=== PATIENT | female | born 1970 | race American Indian/Alaskan Native ===

== ENCOUNTER 2017-04-12 11:12 | Emergency (ER) | payer OTHER ==
[2017-04-12 11:13] VITALS: BMI 39.4
[2017-04-12 11:34] VITALS: TEMP 98.6
--- NOTE | 2017-04-12 12:06 | ED PDOC ---
Arrival/HPI - General Chief Complaint: Seizure Time Seen by Provider: 04/12/17 11:42 Historian: Patient, Family - History of Present Illness Narrative History of Present Illness (Text): 04/12/17 11:55 Britt Mccall is a 46 year old female who presents to the Emergency department complaining of two episodes of seizures that began two nights ago. Patient reports that two nights ago, she was getting ready to go to bed and then had an episode of a "seizure." Patient's mother states patient's right arm began to shake, followed by her left arm. Mother was able to talk to patient while this episode occurred, but mother reports that patient had slower than usual response. The episode resolved after a minute and then patient immediately became AAOx3 with no confusion. Patient had similar episode last night. Mother reports that these episodes are always when patient is lying in bed. Patient notes there has been a recent change in her bipolar medications. Patient denies any current complaints. Patient denies any chest pain, shortness of breath, headache, nausea, vomiting, diarrhea, fever, chills, cough , visual changes, tongue biting, bowel/bladder incontinence or head injury. PMD: Dr. Mendes Time/Duration: < week (2 nights ago) Symptom Onset: Sudden Symptom Course: Unchanged Activities at Onset: Rest Modifying Factors (Text): None Context: Home Associated Symptoms (Text): None Past Medical History - Provider Review Nursing Documentation Reviewed: Yes - Past History Past History: Non-Contributing - Infectious Disease Hx of Infectious Diseases: None - Tetanus Immunization Tetanus Immunization: Unknown - Reproductive Menopause: No - Cardiac Hx Hypertension: Yes - Pulmonary Hx Respiratory Disorders: Yes Hx Asthma: Yes - Neurological Hx Neurological Disorder: No Hx Seizures: Yes - HEENT Hx HEENT Disorder: No - Renal Hx Renal Disorder: No - Endocrine/Metabolic Hx Endocrine Disorders: Yes Hx Diabetes Mellitus Type 2: Yes - Hematological/Oncological Hx Blood Disorders: No - Integumentary Hx Dermatological Disorder: Yes (acne) - Musculoskeletal/Rheumatological Hx Musculoskeletal Disorders: Yes Hx Fractures: Yes - Gastrointestinal Hx Gastrointestinal Disorders: No - Genitourinary/Gynecological Hx Genitourinary Disorders: No - Psychiatric Hx Depression: Yes Hx Substance Use: No - Surgical History Hx Orthopedic Surgery: Yes (R knee) Other/Comment: jaw fixation - Anesthesia Hx Anesthesia: Yes Hx Anesthesia Reactions: No Hx Malignant Hyperthermia: No - Suicidal Assessment Feels Threatened In Home Enviroment: No Family/Social History - Physician Review Nursing Documentation Reviewed: Yes Family/Social History: Unknown Family HX Smoking Status: Never Smoked Hx Alcohol Use: No Hx Substance Use: No Hx Substance Use Treatment: No Allergies/Home Meds Allergies/Adverse Reactions: Allergies codeine Allergy (Severe, Verified 04/12/17 11:28) ANAPHYLAXIS mushroom Allergy (Verified 04/12/17 11:28) SHORTNESS OF BREATH Home Medications: Home Meds Medication Instructions Recorded Confirmed Lisinopril 10 mg PO DAILY 04/15/12 04/12/17 Metformin HCl [Metformin] 1,000 mg PO BID 04/15/12 04/12/17 Bromocriptine [Parlodel] 2.5 mg PO HS 04/12/17 04/12/17 Calcitriol [Rocaltrol] 0.25 mcg PO BID 04/12/17 04/12/17 Escitalopram [Lexapro] 20 mg PO DAILY 04/12/17 04/12/17 Levothyroxine [Levoxyl] 0.125 mg PO DAILY 04/12/17 04/12/17 Lurasidone HCl [Latuda] 40 mg PO HS 04/12/17 04/12/17 Montelukast Sodium [Singulair] 10 mg PO DAILY 04/12/17 04/12/17 Naproxen [Naprosyn] 500 mg PO BID 04/12/17 04/12/17 Review of Systems - Review of Systems Constitutional: absent: Fatigue, Weight Change, Fevers Eyes: absent: Vision Changes, Photophobia ENT: Other (no tongue biting). absent: Rhinorrhea Respiratory: absent: SOB, Cough, Sputum, Wheezing Cardiovascular: absent: Chest Pain, Palpitations, Edema, Calf Pain, BANKS, Orthopnea, Syncope Gastrointestinal: absent: Abdominal Pain, Constipation, Diarrhea, Nausea, Vomiting Genitourinary Female: absent: Dysuria Musculoskeletal: absent: Back Pain Skin: absent: Rash Neurological: Other (2 episodes of tremor). absent: Headache Endocrine: absent: Diaphoresis Psychiatric: absent: Anxiety Physical Exam Vital Signs Temp Pulse Resp BP Pulse Ox 04/12/17 13:13 83 20 122/81 98 04/12/17 11:31 98.6 F 84 18 130/70 97 04/12/17 11:22 99.3 F 91 H 18 116/78 97 Temperature: Afebrile Blood Pressure: Normal Pulse: Regular Respiratory Rate: Normal Appearance: Positive for: Well-Appearing, Non-Toxic, Comfortable Pain Distress: None Mental Status: Positive for: Alert and Oriented X 3 - Systems Exam Head: Present: Atraumatic, Normocephalic Pupils: Present: PERRL Extroacular Muscles: Present: EOMI Conjunctiva: Present: Normal Mouth: Present: Moist Mucous Membranes Pharnyx: No: ERYTHEMA, EXUDATE Neck: Present: Normal Range of Motion. No: MIDLINE TENDERNESS Respiratory/Chest: Present: Clear to Auscultation, Good Air Exchange. No: Respiratory Distress, Accessory Muscle Use Cardiovascular: Present: Regular Rate and Rhythm, Normal S1, S2. No: Murmurs Abdomen: Present: Normal Bowel Sounds. No: Tenderness, Distention, Peritoneal Signs Back: Present: Normal Inspection. No: CVA Tenderness Upper Extremity: Present: Normal Inspection. No: Cyanosis, Edema Lower Extremity: Present: Normal Inspection. No: Edema Neurological: Present: GCS=15, CN II-XII Intact, Speech Normal, Normal Sensory Function, Normal Cerebellar Funct, Gait Normal Skin: Present: Warm, Dry, Normal Color. No: Rashes Psychiatric: Present: Alert, Oriented x 3, Normal Insight, Normal Concentration Medical Decision Making ED Course and Treatment: 04/12/17 11:55 Impression: 46 year old female with two episodes of tremors. Presentation does not seem consistent with seizure as both arms are shaking while patient is conversant and has no tongue biting, urinary or bowel incontinence or post-ictal period. Could be tremor vs night terror but needs further neuro eval Plan: -- CT Head without contrast -- Chest X-ray -- Labs -- Urinalysis -- Reassess and disposition Progress Notes: 04/12/17 13:[address] head negative. Spoke to hospitalist who reports that even if patient did have seizure, she can follow-up as outpatient with neurology and does not need inpatient admission for neuro workup. Patient feels comfortably following up as outpatient. Instructed on no driving. - Lab Interpretations Lab Results: 04/12/17 12:30 04/12/17 12:30 Lab Results 04/12/17 12:30: Free T4 0.94, TSH 3rd Generation 3.77 04/12/17 12:30: Sodium 139, Potassium 4.1, Chloride 103, Carbon Dioxide 28, Anion Gap 12, BUN 14, Creatinine 0.9, Est GFR ( Amer) > 60, Est GFR (Non- Af Amer) > 60, Random Glucose 132 H, Calcium 9.6, Phosphorus 3.5, Magnesium 1.9 , Total Bilirubin 0.3, AST 51 H, ALT 46, Alkaline Phosphatase 57, Total Protein 6.8, Albumin 3.9, Globulin 2.9, Albumin/Globulin Ratio 1.3 04/12/17 12:30: WBC 5.2, RBC 4.47, Hgb 10.3 L, Hct 32.2 L, MCV 72.0 L, MCH 23.0 L, MCHC 32.0, RDW 18.1 H, Plt Count 353, MPV 8.9, Gran % 67.9, Lymph % (Auto) 25.2, [place] % (Auto) 5.0, Eos % (Auto) 1.3 L, Baso % (Auto) 0.6, Gran # 3.56, Lymph # 1.3, [place] # 0.3, Eos # 0.1, Baso # 0.03 04/12/17 12:25: Urine Color Yellow, Urine Appearance Clear, Urine pH 5.5, Ur Specific Bryan 1.020, Urine Protein Negative, Urine Glucose (UA) Negative, Urine Ketones Negative, Urine Blood Moderate H, Urine Nitrate Negative, Urine Bilirubin Negative, Urine Urobilinogen 0.2, Ur Leukocyte Esterase Negative, Urine RBC 0 - 2, Urine WBC 0 - 2, Ur Epithelial Cells 1 - 3, Urine Bacteria Neg 04/12/17 11:38: POC Glucose (mg/dL) 140 H I have reviewed the lab results: Yes - RAD Interpretation Radiology Orders: 04/12/17 11:59 HEAD W/O CONTRAST [CT] Stat CHEST PORTABLE [RAD] Stat - Scribe Statement The provider has reviewed the documentation as recorded by the Scribe 04/12/2017 Vilma Singh Provider Scribe Attestation: All medical record entries made by the Scribe were at my direction and personally dictated by me. I have reviewed the chart and agree that the record accurately reflects my personal performance of the history, physical exam, medical decision making, and the department course for this patient. I have also personally directed, reviewed, and agree with the discharge instructions and disposition. Disposition/Present on Arrival - Present on Arrival Any Indicators Present on Arrival: No History of DVT/PE: No History of Uncontrolled Diabetes: No Urinary Catheter: No History of Decub. Ulcer: No History Surgical Site Infection Following: None - Disposition Have Diagnosis and Disposition been Completed?: Yes Diagnosis: Tremor Disposition: HOME/ ROUTINE Disposition Time: 13:21 Patient Plan: Discharge Patient Problems: Current Active Problems Problem Status Onset Tremor Acute Condition: GOOD Discharge Instructions (ExitCare): Tremors (ED) Additional Instructions: Follow up with PMD within 2 days. Follow-up with neurology for further evaluation of tremors. Take medication as prescribed. NO DRIVING UNTIL CLEARED BY NEUROLOGY Referrals: Joshua Valera MD [Staff Provider] - Follow up with primary Forms: [employer] (Lebanese)
[2017-04-12 12:41] LABS: PH,URINE 5.5 (4.7-8.0); URINE BILIRUBIN NEGATIVE (NEGATIVE); URINE BLOOD MODERATE (NEGATIVE); URINE GLUCOSE (UA) NEGATIVE (NEGATIVE); URINE LEUKOCYTE ESTERASE NEGATIVE Leu/uL (NEGATIVE); URINE NITRATE NEGATIVE (NEGATIVE); URINE PROTEIN NEGATIVE mg/dL (<30 mg/dL); URINE UROBILINOGEN 0.2 E.U./dL (<1 E.U./dL)
[2017-04-12 12:42] LABS: URINE APPEARANCE CLEAR (CLEAR); URINE COLOR YELLOW (YELLOW)
[2017-04-12 12:46] LABS: URINE BACTERIA NEG (NEG); URINE RBC 0 - 2 /hpf (0-2); URINE WBC 0 - 2 /hpf (0-6)
[2017-04-12 13:00] LABS: BASO # 0.03 K/mm3 (0.0-2.0); BASO % 0.6 % (0.0-3.0); EOS # 0.1 (0.0-0.7); EOS % 1.3 % (1.5-5.0); GRAN # 3.56 (1.4-6.5); GRAN % 67.9 % (50.0-68.0); HEMOGLOBIN 10.3 g/dL (12.0-16.0); LYMPH # 1.3 (1.2-3.4); LYMPH % 25.2 % (22.0-35.0); MEAN PLATELET VOLUME 8.9 fl (7.0-11.0); MONO # 0.3 (0.1-0.6); PLATELET COUNT 353 10^3/uL (120.0-450.0); RBC 4.47 10^6/uL (3.5-6.1); RED CELL DISTRIBUTION WIDTH 18.1 % (11.5-14.5); WHITE BLOOD COUNT 5.2 10^3/ul (4.5-11.0)
[2017-04-12 13:08] LABS: ALB/GLOB RATIO 1.3 (1.1-1.8); ALBUMIN 3.9 g/dL (3.0-4.8); ALT/SGPT 46 U/L (7-56); AST/SGOT 51 U/L (15-39); BLOOD UREA NITROGEN 14 mg/dL (7-21); CALCIUM 9.6 mg/dL (8.4-10.5); GFR AFRICAN-AMERICAN > 60; GFR NON-AFRICAN AMERICAN > 60; MAGNESIUM 1.9 mg/dL (1.7-2.2)
--- NOTE | 2017-04-12 13:10 | CT ---
PROCEDURE: CT HEAD WITHOUT CONTRAST. HISTORY: seizure COMPARISON: None available. TECHNIQUE: Axial computed tomography images were obtained through the head/brain without intravenous contrast. Radiation dose: Total exam DLP = 1379 mGy-cm. This CT exam was performed using one or more of the following dose reduction techniques: Automated exposure control, adjustment of the mA and/or kV according to patient size, and/or use of iterative reconstruction technique. FINDINGS: HEMORRHAGE: No intracranial hemorrhage. BRAIN: No mass effect or edema. No atrophy or chronic microvascular ischemic changes. VENTRICLES: Unremarkable. No hydrocephalus. CALVARIUM: Unremarkable. PARANASAL SINUSES: Unremarkable as visualized. No significant inflammatory changes. MASTOID AIR CELLS: Unremarkable as visualized. No inflammatory changes. OTHER FINDINGS: None. IMPRESSION: No acute findings
[2017-04-12 13:20] VITALS: O2SAT 98
[2017-04-12 13:25] LABS: FREE T4 0.94 ng/dL (0.78-2.19)
--- NOTE | 2017-04-12 13:44 | RAD ---
HISTORY: Seizure. Technique: Single view portable semi erect @ 12:55. COMPARISON: 06/30/2013. FINDINGS: LUNGS: No active pulmonary disease. PLEURA: No significant pleural effusion identified, no pneumothorax apparent. CARDIOVASCULAR: Normal. OSSEOUS STRUCTURES: No significant abnormalities. VISUALIZED UPPER ABDOMEN: Normal. OTHER FINDINGS: None. IMPRESSION: No active disease. No significant interval change compared to the prior examination(s). No preliminary report provided by emergency department personnel.
[2017-04-12 14:31] VITALS: BP 122/83; PULSE 76; RESP 16
--- NOTE | 2017-04-12 15:55 | CARD ---
APPROVED REPORT EKG Measurement Heart [id number] <Conclusion> Normal sinus rhythm Nonspecific T wave abnormality Abnormal ECG
== END 2017-04-12 14:31 | disposition home or self-care (01) ==
LOC: ED 11:12
DX: R25.1 Tremor, unspecified (principal); I10 Essential (primary) hypertension; E11.9 Type 2 diabetes mellitus without complications

== ENCOUNTER 2017-04-12 15:01 | Emergency (ER) | payer OTHER ==
[2017-04-12 15:01] VITALS: BMI 39.4
--- NOTE | 2017-04-12 15:24 | ED PDOC ---
Arrival/HPI - General Time Seen by Provider: 04/12/17 15:22 - History of Present Illness Narrative History of Present Illness (Text): 04/12/17 15:23 Patient was seen earlier by me for tremor. See that documentation for further information. Mother now returns with patient and reports that that she did not mention that the patient has been more agitated recently, is talking to herself and becoming aggressive at home. Mother is requesting psych eval for her bipolar disorder. Patient denies HI/SI, AH or VH and is calm and cooperative in ED Past Medical History - Past History Past History: Non-Contributing - Infectious Disease Hx of Infectious Diseases: None - Tetanus Immunization Tetanus Immunization: Unknown - Cardiac Hx Hypertension: Yes - Pulmonary Hx Respiratory Disorders: Yes Hx Asthma: Yes - Neurological Hx Neurological Disorder: No Hx Seizures: Yes - HEENT Hx HEENT Disorder: No - Renal Hx Renal Disorder: No - Endocrine/Metabolic Hx Endocrine Disorders: Yes Hx Diabetes Mellitus Type 2: Yes - Hematological/Oncological Hx Blood Disorders: No - Integumentary Hx Dermatological Disorder: Yes (acne) - Musculoskeletal/Rheumatological Hx Musculoskeletal Disorders: Yes Hx Fractures: Yes - Gastrointestinal Hx Gastrointestinal Disorders: No - Genitourinary/Gynecological Hx Genitourinary Disorders: No - Psychiatric Hx Depression: Yes Hx Substance Use: No - Surgical History Hx Orthopedic Surgery: Yes (R knee) Other/Comment: jaw fixation - Anesthesia Hx Anesthesia: Yes Hx Anesthesia Reactions: No Hx Malignant Hyperthermia: No - Suicidal Assessment Feels Threatened In Home Enviroment: No Family/Social History Family/Social History: No Known Family HX Smoking Status: Never Smoked Hx Alcohol Use: No Hx Substance Use: No Hx Substance Use Treatment: No Allergies/Home Meds Allergies/Adverse Reactions: Allergies codeine Allergy (Severe, Verified 04/12/17 11:28) ANAPHYLAXIS mushroom Allergy (Verified 04/12/17 11:28) SHORTNESS OF BREATH Home Medications: Home Meds Medication Instructions Recorded Confirmed Lisinopril 10 mg PO DAILY 04/15/12 04/12/17 Metformin HCl [Metformin] 1,000 mg PO BID 04/15/12 04/12/17 Bromocriptine [Parlodel] 2.5 mg PO HS 04/12/17 04/12/17 Calcitriol [Rocaltrol] 0.25 mcg PO BID 04/12/17 04/12/17 Escitalopram [Lexapro] 20 mg PO DAILY 04/12/17 04/12/17 Levothyroxine [Levoxyl] 0.125 mg PO DAILY 04/12/17 04/12/17 Lurasidone HCl [Latuda] 40 mg PO HS 04/12/17 04/12/17 Montelukast Sodium [Singulair] 10 mg PO DAILY 04/12/17 04/12/17 Naproxen [Naprosyn] 500 mg PO BID 04/12/17 04/12/17 Review of Systems - Review of Systems Constitutional: absent: Fatigue Eyes: absent: Vision Changes Respiratory: absent: SOB, Cough, Sputum, Wheezing Cardiovascular: absent: Chest Pain Gastrointestinal: absent: Abdominal Pain, Constipation, Diarrhea, Nausea, Vomiting Genitourinary Female: absent: Dysuria Musculoskeletal: absent: Arthralgias Skin: absent: Rash Neurological: absent: Headache Psychiatric: absent: Anxiety, Depression, Suicidal Ideation, Other (+auditory hallucinations) Physical Exam Vital Signs Temp Pulse Resp BP Pulse Ox 04/12/17 15:30 98.8 F 71 18 141/91 H 98 Temperature: Afebrile Blood Pressure: Normal Pulse: Regular Respiratory Rate: Normal Appearance: Positive for: Well-Appearing, Non-Toxic, Comfortable Pain Distress: None - Systems Exam Head: Present: Atraumatic, Normocephalic Pupils: Present: PERRL Extroacular Muscles: Present: EOMI Conjunctiva: Present: Normal Neck: Present: Normal Range of Motion Respiratory/Chest: Present: Clear to Auscultation Cardiovascular: Present: Regular Rate and Rhythm, Normal S1, S2. No: Murmurs Abdomen: No: Tenderness Upper Extremity: Present: Normal Inspection Lower Extremity: Present: Normal Inspection Neurological: Present: GCS=15, CN II-XII Intact, Speech Normal, Gait Normal Psychiatric: Present: Alert, Oriented x 3. No: Suicidal Ideation, Homicidal Ideation Medical Decision Making ED Course and Treatment: 04/12/17 15:[address] Mendes who is aware that patient is in ED. No medical indication for admission. [facility], crisis, evaluated patient and she does not meet criteria for inpatient psych. They gave patient referral for [facility]. Mother is in agreement with this plan and patient was discharged. Disposition/Present on Arrival - Present on Arrival Any Indicators Present on Arrival: No History of DVT/PE: No History of Uncontrolled Diabetes: No Urinary Catheter: No History Surgical Site Infection Following: None - Disposition Have Diagnosis and Disposition been Completed?: Yes Diagnosis: Bipolar 1 disorder Disposition: HOME/ ROUTINE Disposition Time: 16:27 Patient Problems: Current Active Problems Problem Status Onset Bipolar 1 disorder Acute Condition: GOOD Discharge Instructions (ExitCare): Bipolar Disorder (ED) Additional Instructions: Follow up with [facility]. Return to ED if condition worsens. Take medication as prescribed. Referrals: Anel Mendes MD [Primary Care Provider] - Follow up with primary
[2017-04-12 15:31] VITALS: RESP 18; TEMP 98.8; O2SAT 98
[2017-04-12 20:28] VITALS: BP 133/80; PULSE 76
== END 2017-04-12 16:50 | disposition home or self-care (01) ==
LOC: ED 15:01
DX: F31.9 Bipolar disorder, unspecified (principal)

== ENCOUNTER 2017-04-16 11:37 | Inpatient (IN) | payer MEDICAID, OTHER ==
[2017-04-16 11:49] VITALS: BMI 36.6
[2017-04-16 12:37] LABS: BASO # 0.03 K/mm3 (0.0-2.0); BASO % 0.6 % (0.0-3.0); EOS # 0.1 (0.0-0.7); GRAN # 3.24 (1.4-6.5); GRAN % 67.5 % (50.0-68.0); HEMATOCRIT 33.7 % (36.0-48.0); LYMPH # 1.2 (1.2-3.4); LYMPH % 24.5 % (22.0-35.0); MEAN CELL VOLUME 71.5 fl (80.0-105.0); MEAN CORPUSCULAR HEMOGLOBIN 23.4 pg (25.0-35.0); MEAN CORPUSCULAR HGB CONC 32.6 g/dl (31.0-37.0); MEAN PLATELET VOLUME 8.7 fl (7.0-11.0); MONO # 0.3 (0.1-0.6); MONO % 6.4 % (1.0-6.0); RED CELL DISTRIBUTION WIDTH 18.2 % (11.5-14.5); WHITE BLOOD COUNT 4.8 10^3/ul (4.5-11.0)
--- NOTE | 2017-04-16 12:40 | ED PDOC ---
Arrival/HPI - General Chief Complaint: Psychiatric Evaluation Time Seen by Provider: 04/16/17 12:00 Historian: Patient - History of Present Illness Narrative History of Present Illness (Text): 04/16/17 12:03 A 46 year old female, whose past medical history includes bipolar, depression, thyroid cancer s/p partial removal of lymph node, presents to the emergency department with mother who reports worsening symptoms since medication change 6 days ago. During the night patient has been talking to herself, more emotional and has been hallucinating and having tremors. Patient denies having hallucinations or talking to herself, but reports she has been having "seizures ", which involve twitching, and is aware of seizures happening. Patient goes to [facility] and reports her doctor changed her medications a week ago from Celexa and Zyprexa, because of weight gain, to Latuda and Lexapro. Notes low grade fever and body soreness for the past couple of days but denies any suicidal ideation, cough, sore throat, shortness of breath, vomiting or any other complaints at this time. PMD: Dr. Mendes Time/Duration: Other (3 days) Symptom Onset: Sudden Symptom Course: Unchanged Activities at Onset: Rest Context: Home Past Medical History - Provider Review Nursing Documentation Reviewed: Yes - Past History Past History: Non-Contributing - Infectious Disease Hx of Infectious Diseases: None - Tetanus Immunization Tetanus Immunization: Unknown - Cardiac Hx Hypertension: Yes - Pulmonary Hx Respiratory Disorders: Yes Hx Asthma: Yes - Neurological Hx Neurological Disorder: No Hx Seizures: Yes - HEENT Hx HEENT Disorder: No - Renal Hx Renal Disorder: No - Endocrine/Metabolic Hx Endocrine Disorders: Yes Hx Diabetes Mellitus Type 2: Yes - Hematological/Oncological Hx Blood Disorders: No - Integumentary Hx Dermatological Disorder: Yes (acne) - Musculoskeletal/Rheumatological Hx Musculoskeletal Disorders: Yes Hx Fractures: Yes - Gastrointestinal Hx Gastrointestinal Disorders: No - Genitourinary/Gynecological Hx Genitourinary Disorders: No - Psychiatric Hx Bipolar Disorder: Yes Hx Depression: Yes Hx Psychosis: Yes Hx Substance Use: No - Surgical History Hx Orthopedic Surgery: Yes (R knee) Other/Comment: jaw fixation - Anesthesia Hx Anesthesia: Yes Hx Anesthesia Reactions: No Hx Malignant Hyperthermia: No - Suicidal Assessment Feels Threatened In Home Enviroment: No Family/Social History - Physician Review Nursing Documentation Reviewed: Yes Family/Social History: No Known Family HX Smoking Status: Never Smoked Hx Alcohol Use: No Hx Substance Use: No Hx Substance Use Treatment: No Allergies/Home Meds Allergies/Adverse Reactions: Allergies codeine Allergy (Severe, Verified 04/16/17 21:45) ANAPHYLAXIS chlorpromazine [From Thorazine] Allergy (Verified 04/16/17 21:45) ANAPHYLAXIS fluphenazine [From Prolixin] Allergy (Verified 04/16/17 21:45) RASH haloperidol [From Haldol] Allergy (Verified 04/16/17 21:45) SHORTNESS OF BREATH mushroom Allergy (Verified 04/16/17 21:45) SHORTNESS OF BREATH ziprasidone [From Geodon] Allergy (Verified 04/16/17 21:45) REDNESS tardive dyskinesia Home Medications: Home Meds Medication Instructions Recorded Confirmed Lisinopril 10 mg PO DAILY 04/15/12 04/16/17 Metformin HCl [Metformin] 1,000 mg PO BID 04/15/12 04/16/17 Bromocriptine [Parlodel] 2.5 mg PO HS 04/12/17 04/16/17 Calcitriol [Rocaltrol] 0.25 mcg PO BID 04/12/17 04/16/17 Escitalopram [Lexapro] 20 mg PO DAILY 04/12/17 04/16/17 Levothyroxine [Levoxyl] 0.125 mg PO DAILY 04/12/17 04/16/17 Lurasidone HCl [Latuda] 40 mg PO HS 04/12/17 04/16/17 Montelukast Sodium [Singulair] 10 mg PO DAILY 04/12/17 04/16/17 Naproxen [Naprosyn] 500 mg PO BID 04/12/17 04/16/17 Albuterol HFA [Ventolin HFA 90 1 puff IH QID PRN 04/16/17 04/16/17 mcg/actuation (8 g)] Calcium Carbonate/Vitamin D3 1 tab PO DAILY 04/16/17 04/16/17 [Caltrate 600 Plus D3 Tablet] Loratadine [Claritin] 1 tab PO DAILY 04/16/17 04/16/17 Review of Systems - Physician Review All systems were reviewed & negative as marked: Yes - Review of Systems Constitutional: Fevers (low grade), Other (body soreness) ENT: absent: Sore Throat Respiratory: absent: SOB, Cough Gastrointestinal: absent: Vomiting Neurological: Seizure (twitching) Psychiatric: Other (hallucinations, emotional). absent: Suicidal Ideation Physical Exam Vital Signs Reviewed: Yes Vital Signs Temp Pulse Resp BP Pulse Ox 04/16/17 15:05 78 18 121/71 98 04/16/17 14:10 81 18 122/75 98 04/16/17 13:06 98.7 F 04/16/17 12:55 89 18 124/79 97 04/16/17 11:56 99.9 F H 98 H 18 126/80 96 Temperature: Afebrile Blood Pressure: Normal Pulse: Regular Respiratory Rate: Normal Appearance: Positive for: Well-Appearing, Non-Toxic, Comfortable Pain Distress: None Mental Status: Positive for: Alert and Oriented X 3 - Systems Exam Head: Present: Atraumatic, Normocephalic Pupils: Present: PERRL Extroacular Muscles: Present: EOMI Conjunctiva: Present: Normal Mouth: Present: Moist Mucous Membranes Neck: Present: Normal Range of Motion Respiratory/Chest: Present: Clear to Auscultation, Good Air Exchange. No: Respiratory Distress, Accessory Muscle Use Cardiovascular: Present: Regular Rate and Rhythm, Normal S1, S2. No: Murmurs Abdomen: Present: Normal Bowel Sounds. No: Tenderness, Distention, Peritoneal Signs Back: Present: Normal Inspection Upper Extremity: Present: Normal Inspection. No: Cyanosis, Edema Lower Extremity: Present: Normal Inspection. No: Edema Neurological: Present: GCS=15, CN II-XII Intact, Speech Normal Skin: Present: Warm, Dry, Normal Color. No: Rashes Psychiatric: Present: Alert, Oriented x 3, Normal Insight, Normal Concentration Medical Decision Making ED Course and Treatment: 04/16/17 12:40 EKG: Ordered, reviewed, and independently interpreted the EKG. Rate : 89 BPM Rhythm : NSR Interpretation : Nonspecific T wave changes, normal axis, normal intervals 04/16/17 13:38 chest xray Creator : Jae Engel MD IMPRESSION: No active disease. - Lab Interpretations Lab Results: 04/16/17 12:30 04/16/17 12:30 Lab Results 04/16/17 13:00: Urine Opiates Screen Negative, Urine Methadone Screen Negative, Ur Barbiturates Screen Negative, Ur Phencyclidine Scrn Negative, Ur Amphetamines Screen Negative, U Benzodiazepines Scrn Negative, U Oth Cocaine Metabols Negative, U Cannabinoids Screen Negative 04/16/17 13:00: Urine Color Yellow, Urine Appearance Clear, Urine pH 6.0, Ur Specific [place] 1.010, Urine Protein Negative, Urine Glucose (UA) Negative, Urine Ketones Negative, Urine Blood Negative, Urine Nitrate Negative, Urine Bilirubin Negative, Urine Urobilinogen 0.2, Ur Leukocyte Esterase Trace H, Urine RBC Negative, Urine WBC Negative, Ur Epithelial Cells Many 04/16/17 12:50: Influenza Typ A,B (EIA) Negative for flu a/b 04/16/17 12:30: TSH 3rd Generation 11.10 H, Alcohol, Quantitative < 10 04/16/17 12:30: Salicylates < 1 L, Acetaminophen < 10.0 L 04/16/17 12:30: Sodium 140, Potassium 3.9, Chloride 103, Carbon Dioxide 25, Anion Gap 16, BUN 9, Creatinine 0.9, Est GFR ( Amer) > 60, Est GFR (Non- Af Amer) > 60, Random Glucose 137 H, Calcium 9.7, Total Bilirubin 0.2, AST 28, ALT 41, Alkaline Phosphatase 55, Total Protein 7.1, Albumin 4.2, Globulin 2.8, Albumin/Globulin Ratio 1.5 04/16/17 12:30: WBC 4.8, RBC 4.71, Hgb 11.0 L, Hct 33.7 L, MCV 71.5 L, MCH 23.4 L, MCHC 32.6, RDW 18.2 H, Plt Count 347, MPV 8.7, Gran % 67.5, Lymph % (Auto) 24.5, [place] % (Auto) 6.4 H, Eos % (Auto) 1.0 L, Baso % (Auto) 0.6, Gran # 3.24, Lymph # 1.2, [place] # 0.3, Eos # 0.1, Baso # 0.03 I have reviewed the lab results: Yes - RAD Interpretation Radiology Orders: 04/16/17 12:13 CHEST PORTABLE [RAD] Stat - EKG Interpretation Interpreted by ED Physician: Yes Type: 12 lead EKG - Medication Orders Current Medication Orders: Calcitriol (Rocaltrol) 0.25 mcg PO BID MARILYN Last Admin: 04/17/17 09:38 Dose: 0.25 mcg Calcium Carbonate (Caltrate) 600 mg PO DAILY MARILYN Last Admin: 04/17/17 09:38 Dose: 600 mg Citalopram Hydrobromide (Celexa) 10 mg PO DAILY MARILYN Levothyroxine Sodium (Synthroid) 125 mcg PO 0700 MARILYN Lisinopril (Zestril) 10 mg PO DAILY MARILYN Last Admin: 04/17/17 08:23 Dose: 10 mg Lorazepam (Ativan) 1 mg PO Q4 PRN; Protocol PRN Reason: Agitation Metformin HCl (Glucophage) 1,000 mg PO BID MARILYN Last Admin: 04/17/17 08:23 Dose: 1,000 mg Olanzapine (Zyprexa) 5 mg PO AMHS MARILYN PRN Reason: Protocol Last Admin: 04/17/17 09:53 Dose: 5 mg Vitamin D (Vitamin D 400 Intl Units Tab) 400 intlu PO DAILY MARILYN Discontinued Medications Levothyroxine Sodium (Synthroid) 125 mcg PO STAT STA Stop: 04/17/17 08:36 Last Admin: 04/17/17 09:38 Dose: 125 mcg - Scribe Statement The provider has reviewed the documentation as recorded by the Victoriano Mcneil Provider Scribe Attestation: All medical record entries made by the Victoriano were at my direction and personally dictated by me. I have reviewed the chart and agree that the record accurately reflects my personal performance of the history, physical exam, medical decision making, and the department course for this patient. I have also personally directed, reviewed, and agree with the discharge instructions and disposition. Disposition/Present on Arrival - Present on Arrival Any Indicators Present on Arrival: No History of DVT/PE: No History of Uncontrolled Diabetes: No Urinary Catheter: No History of Decub. Ulcer: No History Surgical Site Infection Following: None - Disposition Have Diagnosis and Disposition been Completed?: Yes Diagnosis: Schizoaffective disorder, bipolar type Disposition: HOSPITALIZED Disposition Time: 15:19 Patient Problems: Current Active Problems Problem Status Onset Schizoaffective disorder, bipolar type Acute Condition: STABLE
[2017-04-16 12:49] LABS: ALB/GLOB RATIO 1.5 (1.1-1.8); ALCOHOL SERUM < 10 mg/dL (0-10); ALKALINE PHOSPHATASE 55 U/L (38-133); ALT/SGPT 41 U/L (7-56); AST/SGOT 28 U/L (15-39); BILIRUBIN,TOTAL 0.2 mg/dL (0.2-1.3); BLOOD UREA NITROGEN 9 mg/dL (7-21); CALCIUM 9.7 mg/dL (8.4-10.5); CARBON DIOXIDE 25 mmol/L (21-33); CHLORIDE 103 mmol/L (98-107); GFR AFRICAN-AMERICAN > 60; GLUCOSE,RANDOM 137 mg/dL (70-110); POTASSIUM 3.9 mmol/L (3.6-5.0); SODIUM 140 mmol/L (132-148); TOTAL PROTEIN 7.1 g/dL (5.8-8.3)
[2017-04-16 13:06] LABS: URINE APPEARANCE CLEAR (CLEAR); URINE BILIRUBIN NEGATIVE (NEGATIVE); URINE BLOOD NEGATIVE (NEGATIVE); URINE COLOR YELLOW (YELLOW); URINE GLUCOSE (UA) NEGATIVE (NEGATIVE); URINE KETONE NEGATIVE (NEGATIVE); URINE LEUKOCYTE ESTERASE TRACE Leu/uL (NEGATIVE); URINE PROTEIN NEGATIVE mg/dL (<30 mg/dL); URINE UROBILINOGEN 0.2 E.U./dL (<1 E.U./dL)
[2017-04-16 13:14] LABS: URINE EPITHELIAL CELLS MANY /hpf (0-5); URINE RBC NEGATIVE /hpf (0-2); URINE WBC NEGATIVE /hpf (0-6)
--- NOTE | 2017-04-16 13:36 | RAD ---
HISTORY: psych COMPARISON: No prior. FINDINGS: LUNGS: No active pulmonary disease. PLEURA: No significant pleural effusion identified, no pneumothorax apparent. CARDIOVASCULAR: Normal. OSSEOUS STRUCTURES: No significant abnormalities. VISUALIZED UPPER ABDOMEN: Normal. OTHER FINDINGS: None. IMPRESSION: No active disease.
--- NOTE | 2017-04-16 16:26 | CARD ---
APPROVED REPORT EKG Measurement Heart [id number] <Conclusion> Normal sinus rhythm Nonspecific T wave abnormality Abnormal ECG
--- NOTE | 2017-04-16 22:23 | PCM.BM ---
Treatment Plan Problems - Problems identified on initial assessmt non compliance with medications Date Initiated: 04/16/17 Time Initiated: 22:21 Assessment reference: NA Status: Active hallucinations Date Initiated: 04/16/17 Time Initiated: 22:23 Assessment reference: NA Status: Active Treatment assets and liabiliti Patient Assests: cooperative, ADL independent, good past tx response Patient Liabilities: financial problems, poor support system - Milieu Protocol Maintain good personal hygiene: daily Encourage regular showers, daily Remind patient to perform daily oral care, daily Assist patient to perform ADL's Maintain personal safety: daily Educate patient to report safety concerns to staff, daily Monitor environment for contraband/sharps Medication safety: Monitor for expected outcome, potential side effects: daily, Assess barriers to learning: daily, Assess readiness for medication education: daily Family Contact Family involvement: Famliy/SO not involved Family contact: Patient agrees to contact - Goals for Treatment Patient goals for treatment: To get vmy medications on board Discharge/Continuing Care - Education Needs Education Needs: Patient Medication, Patient Diagnosis/Disease Process, Patient Coping Skills, Patient Anger Management skills, Patient Activities of Daily Living, Patient Pain - Discharge Discharge Criteria: Normal sleep pattern, Ability to care for self
--- NOTE | 2017-04-17 07:26 | HP ---
HISTORY OF PRESENT ILLNESS: The patient is a 46-year-old single female who has an approximately 20-year psychiatric history that includes psychosis. She had been seen in the emergency room which she explained that was because she had a seizure. However, her mother indicated that the patient becomes disorganized, more so at night, talks to herself, becomes agitated, and has a focus of concern. The patient had been seen in the emergency room 4 days prior to this present admission and was discharged to the [facility]. According to the patient, she had recently been switched by Dr. Wynn at the [facility], where she has been a patient for a period of time ( but with Dr. Wynn having seen her only once, having changed her medicine that having left the service of that agency), switched her to Latuda from Zyprexa that she had been on previously. The patient has been hospitalized approximately 3 or 4 times for this psychiatric disorder that appears to be of psychotic origin. She was born and grow up in [place]. She had started to attend [employer], where she plans to reattend when she gets better, but presently cannot because of her condition. The patient reports that she has been operated on for thyroid cancer this past August. She has also had a partial removal of lymph node. The patient had also been complaining of tremors in arms and stiffness for the past 3 days. The patient herself complained that she had been undergoing "seizures" which consisted of twitching. In addition to the patient having stopped her Zyprexa about 1 week ago, she was stopped from the Celexa that she was taking. The patient felt that this regimen was causing her to have weight gain and thus she was switched to Latuda and Lexapro. She also complained of a low grade fever and body soreness. THE PATIENT REPORTEDLY HAS ALLERGIES TO CHLORPROMAZINE (ANAPHYLAXIS), FLUPHENAZINE (RASH), HALDOL (SHORTNESS OF BREATH), ZIPRASIDONE (REDNESS). that the patient has been exposed to a number of antipsychotics in the past, underscoring a psychotic disorder in the present. The patient has never been . She has a sister who is a psychiatric nurse at [employer] who herself is on the treatment for a bipolar I disorder. Her sister also reportedly has observed the bizarreness of the patient's behavior. CBC and diff shows hemoglobin 11.0 and hematocrit 33.7. The patient is negative for influenza type 1 and 2. Drug screen is negative. Urinalysis shows trace leukocyte esterase. Biochemical profile shows elevated random glucose of 137. DIAGNOSIS: Rule out schizoaffective disorder, rule out undifferentiated schizophrenia. The patient will be assessed most probably on the psychiatric unit. Anand Rizvi MD/ PhD
[2017-04-17] MEDS ORDERED: Levothyroxine 125 MCG TAB PO STA (08:35)
[2017-04-17 08:55] LABS: CHOLESTEROL 189 mg/dL (130-200); GLUCOSE,FASTING 91 mg/dL (65-110)
[2017-04-17 09:03] LABS: FREE T4 0.89 ng/dL (0.78-2.19)
[2017-04-17 09:17] LABS: THYROID STIMULATING HORMONE 11.4 mIU/mL (0.46-4.68)
--- NOTE | 2017-04-17 09:37 | PCM.PSYCH ---
Initial Psychiatric Evaluation - Initial Psychiatric Evaluation Type of Admission: Voluntary Legal Status: Capacity Chief Complaint (in patient's own words): "I was having seizures" History of Present Illness and Precipitating Events: Patient is a single 46-year-old -[place] female with history of depression and hallucinations, prior psychiatric admissions-most recently ten years ago at [facility], no history of SA, current treatment at [facility] clinic who was brought in by her mother to the emergency room due to increasing lability and hallucinations ever since patient's medication was switched from zyprexa to latuda due to weight gain. Staff notes indicate the patient was noted to be actively responding to internal stimuli during assessment. Patient also reported that she was having seizures described as twitching and she confirms this account during my interview with her this morning. Presently she is alert and oriented x3. Denies depression, anxiety, paranoia, discomfort or pain. Patient does not believe she was hallucinating prior to admission and reports belief that she was hospitalized because she was having seizures. She appears quiet, preoccupied and a little confused during my questioning. Patient cannot recollect the change in medications that were described in the ER documentation however she is willing to continue taking zyprexa as prescribed by Dr. Rizvi as well as Celexa. There have been no major behavioral issues overnight thus far and patient reports that she slept well. SOCIAL HISTORY Patient was born and raised in [place]. She is single and has no children. She lives with her mother and sister. Unemployed. Patient has a GED. She denies any prior history of legal issues. Patient denies any drug alcohol or tobacco use. PSYCHIATRIC HISTORY Patient reports approximately three prior admissions. The most recent mission was 19 years ago hospital. She denies any history of suicide attempts. Currently in treatment at [facility] ER report indicates her psychiatric regimen was recently switched from zyprexa to latuda due to weight gain, this precipitated patient's recent decompensation. Patient was also reportedly prescribed Celexa. Current Medications: Active Medications Generic Name Dose Route Start Last Admin Trade Name Freq PRN Reason Stop Dose Admin Lisinopril 10 mg 04/17/17 08:00 Zestril PO DAILY MARILYN Lorazepam 1 mg 04/16/17 17:19 Ativan PO Q4 PRN Agitation Protocol Metformin HCl 1,000 mg 04/16/17 17:30 04/16/17 18:29 Glucophage PO 1,000 mg BID MARILYN Administration Olanzapine 5 mg 04/16/17 22:00 04/16/17 21:15 Zyprexa PO 5 mg AMHS MARILYN Administration Protocol Past Psychiatric History - Past Psychiatric History Pertinent Medical Hx (Current Medical&Sleep Prob, Allergies): Allergies Allergy/AdvReac Type Severity Reaction Status Date / Time codeine Allergy Severe ANAPHYLAXIS Verified 04/16/17 21:45 chlorpromazine Allergy ANAPHYLAXIS Verified 04/16/17 21:45 [From Thorazine] fluphenazine [From Prolixin] Allergy RASH Verified 04/16/17 21:45 haloperidol [From Haldol] Allergy SHORTNESS Verified 04/16/17 21:45 OF BREATH mushroom Allergy SHORTNESS Verified 04/16/17 21:45 OF BREATH ziprasidone [From Geodon] Allergy REDNESS Verified 04/16/17 21:45 Lisinopril 10 mg PO DAILY 04/15/12 Metformin HCl [Metformin] 1,000 mg PO BID 04/15/12 Bromocriptine [Parlodel] 2.5 mg PO HS 04/12/17 Calcitriol [Rocaltrol] 0.25 mcg PO BID 04/12/17 Escitalopram [Lexapro] 20 mg PO DAILY 04/12/17 Levothyroxine [Levoxyl] 0.125 mg PO DAILY 04/12/17 Lurasidone HCl [Latuda] 40 mg PO HS 04/12/17 Montelukast Sodium [Singulair] 10 mg PO DAILY 04/12/17 Naproxen [Naprosyn] 500 mg PO BID 04/12/17 Albuterol HFA [Ventolin HFA 90 mcg/actuation (8 g)] 1 puff IH QID PRN 04/16/17 Calcium Carbonate/Vitamin D3 [Caltrate 600 Plus D3 Tablet] 1 tab PO DAILY Loratadine [Claritin] 1 tab PO DAILY 04/16/17 Mental Status Examination - Personal Presentation Personal Presentation: Looks stated age - Affect Affect: Blunted, Flat - Motor Activity Motor Activity: Calm - Reliability in Providing Information Reliability in Providing Information: Poor, due to alteration in thoughts - Speech Speech: Disorganized - Formal Thought Process Formal Thought Process: Hallucinations (denies, however patient is an unreliable historian), Loosening of associations - Obsessions/Compulsions Obsessions: No - Cognitive Functions Orientation: Person, Place Sensorium: Alert Estimate of Intelligence: Average Judgement: Imparied, as evidence by: Poor judgement, Imparied, as evidence by: Lack of insight into illness - Risk Risk: Diminished functioning - Strength & Assets Inventory Strength & Assets Inventory: Family support DSM 5 DX - DSM 5 DSM 5 Diagnosis: Schizoaffective Disorder - Recommended/Plan of Treatment Treatment Recommendations and Plan of Treatment: * group, milieu and supportive tx * Zyprexa 5 mg AM & HS for hallucinations * Celexa 10 mg po daily for hx of depression * Awaiting medical f/u * Vitals reviewed and noted below: Selected Entries 04/16/17 04/16/17 04/16/17 11:56 12:55 13:06 Temperature 99.9 F H 98.7 F Pulse Rate 98 H 89 Respiratory 18 18 Rate Blood Pressure 126/80 124/79 04/16/17 04/16/17 14:10 15:05 Temperature Pulse Rate 81 78 Respiratory 18 18 Rate Blood Pressure 122/75 121/71 ER LABS AND STUDIES 04/16/17 EKG: Ordered, reviewed, and independently interpreted the EKG. Rate : 89 BPM Rhythm : NSR Interpretation : Nonspecific T wave changes, normal axis, normal intervals 04/16/17 chest xray IMPRESSION: No active disease. Lab Results 04/16/17 13:00: Urine Opiates Screen Negative, Urine Methadone Screen Negative, Ur Barbiturates Screen Negative, Ur Phencyclidine Scrn Negative, Ur Amphetamines Screen Negative, U Benzodiazepines Scrn Negative, U Oth Cocaine Metabols Negative, U Cannabinoids Screen Negative 04/16/17 13:00: Urine Color Yellow, Urine Appearance Clear, Urine pH 6.0, Ur Specific [place] 1.010, Urine Protein Negative, Urine Glucose (UA) Negative, Urine Ketones Negative, Urine Blood Negative, Urine Nitrate Negative, Urine Bilirubin Negative, Urine Urobilinogen 0.2, Ur Leukocyte Esterase Trace H, Urine RBC Negative, Urine WBC Negative, Ur Epithelial Cells Many 04/16/17 12:50: Influenza Typ A,B (EIA) Negative for flu a/b 04/16/17 12:30: TSH 3rd Generation 11.10 H, Alcohol, Quantitative < 10 04/16/17 12:30: Salicylates < 1 L, Acetaminophen < 10.0 L 04/16/17 12:30: Sodium 140, Potassium 3.9, Chloride 103, Carbon Dioxide 25, Anion Gap 16, BUN 9, Creatinine 0.9, Est GFR ( Amer) > 60, Est GFR (Non- Af Amer) > 60, Random Glucose 137 H, Calcium 9.7, Total Bilirubin 0.2, AST 28, ALT 41, Alkaline Phosphatase 55, Total Protein 7.1, Albumin 4.2, Globulin 2.8, Albumin/Globulin Ratio 1.5 04/16/17 12:30: WBC 4.8, RBC 4.71, Hgb 11.0 L, Hct 33.7 L, MCV 71.5 L, MCH 23.4 L, MCHC 32.6, RDW 18.2 H, Plt Count 347, MPV 8.7, Gran % 67.5, Lymph % (Auto) 24.5, [place] % (Auto) 6.4 H, Eos % (Auto) 1.0 L, Baso % (Auto) 0.6, Gran # 3.24, Lymph # 1.2, [place] # 0.3, Eos # 0.1, Baso # 0.03 FLOOR LABS 04/17/17 04/17/17 07:30 07:30 Fasting Glucose 91 Triglycerides 137 Cholesterol 189 LDL Cholesterol Direct 113 HDL Cholesterol 51 Free T4 0.89 TSH 3rd Generation 11.40 H
[2017-04-17] MEDS ORDERED: Albuterol HFA 90 mcg/actuation (8 g) IH PRN (21:39)
[2017-04-18] MEDS: Insulin Reg-LOW-Coverage SC SCH ×4 (00:19→22:31)
[2017-04-18] MEDS ORDERED: Calcium-Vit D 250 mg-125 Units Tab UD PO SCH (08:00)
[2017-04-18] MEDS: Cholecalciferol 400 Intl Units Tab PO SCH (08:53)
[2017-04-18] MEDS: Levothyroxine 125 MCG TAB PO SCH (08:54)
--- NOTE | 2017-04-18 09:02 | PCM.PYCHPN ---
Psychiatric Progress Note - Psychiatric Progress Note Patient seen today, length of contact: 25 min Patient Chief Complaint: "I was having seizures" Problems Identified/Issues Discussed: History of Present Illness and Precipitating Events: Patient is a single 46-year-old -[place] female with history of depression and hallucinations, prior psychiatric admissions-most recently ten years ago at [facility], no history of SA, current treatment at [facility] clinic who was brought in by her mother to the emergency room due to increasing lability and hallucinations ever since patient's medication was switched from zyprexa to latuda due to weight gain. Staff notes indicate the patient was noted to be actively responding to internal stimuli during assessment. Patient also reported that she was having seizures described as twitching and she confirms this account during my interview with her this morning. Presently she is alert and oriented x3. Denies depression, anxiety, paranoia, discomfort or pain. Patient does not believe she was hallucinating prior to admission and reports belief that she was hospitalized because she was having seizures. She appears quiet, preoccupied and a little confused during my questioning. Patient cannot recollect the change in medications that were described in the ER documentation however she is willing to continue taking zyprexa as prescribed by Dr. Rizvi as well as Celexa. There have been no major behavioral issues overnight thus far and patient reports that she slept well. SOCIAL HISTORY Patient was born and raised in [place]. She is single and has no children. She lives with her mother and sister. Unemployed. Patient has a GED. She denies any prior history of legal issues. Patient denies any drug alcohol or tobacco use. PSYCHIATRIC HISTORY Patient reports approximately three prior admissions. The most recent mission was 19 years ago hospital. She denies any history of suicide attempts. Currently in treatment at [facility]. ER report indicates her psychiatric regimen was recently switched from zyprexa to latuda due to weight gain, this precipitated patient's recent decompensation. Patient was also reportedly prescribed Celexa. ~~~~~~~~~~~~~~~~~~~~~~~~~~~~~~ PROGRESS NOTE I reviewed recent notes and met with patient at bedside. She is fairly groomed, calm and superficially cooperative. Oriented x3. Patient appears preoccupied and a little confused. She continues to deny any major concerns. Denies depression, anxiety, paranoia or hallucinations. Staff notes indicate that patient stays in her room a lot and keeps to herself. She appeared reluctant to take her medications yesterday. However she denied any concerns about her medications when they were reviewed with her today. There were no major behavioral issues overnight and patient slept well. Diagnostic Results: Schizoaffective Disorder Medication Change: No Medical Record Reviewed: Yes Mental Status Examination - Cognitive Function Orientation: Person, Place Attention: WNL Concentration: Poor Association: Loose - Mood Mood: Neutral - Affect Affect: Blunted, Flat - Formal Thought Process Formal Thought Process: Hallucinations (denies, however patient is an unreliable historian), Loosening of associations - Suicidal Ideation Suicidal Ideation: No - Homicidal Ideation Homicidal Ideation: No Goal/Treatment Plan - Goal/Treatment Plan Progress Toward Problem(s) and Goals/Treatment Plan: * group, milieu and supportive tx * Zyprexa 5 mg AM & HS for hallucinations * Celexa 10 mg po daily for hx of depression * Awaiting medical f/u * Vitals reviewed and noted below: Selected Entries 04/16/17 04/16/17 04/16/17 11:56 12:55 13:06 Temperature 99.9 F H 98.7 F Pulse Rate 98 H 89 Respiratory 18 18 Rate Blood Pressure 126/80 124/79 04/16/17 04/16/17 04/17/17 14:10 15:05 16:00 Temperature Pulse Rate 81 78 72 Respiratory 18 18 Rate Blood Pressure 122/75 121/71 107/59 L ER LABS AND STUDIES 04/16/17 EKG: Ordered, reviewed, and independently interpreted the EKG. Rate : 89 BPM Rhythm : NSR Interpretation : Nonspecific T wave changes, normal axis, normal intervals 04/16/17 chest xray IMPRESSION: No active disease. Lab Results 04/16/17 13:00: Urine Opiates Screen Negative, Urine Methadone Screen Negative, Ur Barbiturates Screen Negative, Ur Phencyclidine Scrn Negative, Ur Amphetamines Screen Negative, U Benzodiazepines Scrn Negative, U Oth Cocaine Metabols Negative, U Cannabinoids Screen Negative 04/16/17 13:00: Urine Color Yellow, Urine Appearance Clear, Urine pH 6.0, Ur Specific [place] 1.010, Urine Protein Negative, Urine Glucose (UA) Negative, Urine Ketones Negative, Urine Blood Negative, Urine Nitrate Negative, Urine Bilirubin Negative, Urine Urobilinogen 0.2, Ur Leukocyte Esterase Trace H, Urine RBC Negative, Urine WBC Negative, Ur Epithelial Cells Many 04/16/17 12:50: Influenza Typ A,B (EIA) Negative for flu a/b 04/16/17 12:30: TSH 3rd Generation 11.10 H, Alcohol, Quantitative < 10 04/16/17 12:30: Salicylates < 1 L, Acetaminophen < 10.0 L 04/16/17 12:30: Sodium 140, Potassium 3.9, Chloride 103, Carbon Dioxide 25, Anion Gap 16, BUN 9, Creatinine 0.9, Est GFR ( Amer) > 60, Est GFR (Non- Af Amer) > 60, Random Glucose 137 H, Calcium 9.7, Total Bilirubin 0.2, AST 28, ALT 41, Alkaline Phosphatase 55, Total Protein 7.1, Albumin 4.2, Globulin 2.8, Albumin/Globulin Ratio 1.5 04/16/17 12:30: WBC 4.8, RBC 4.71, Hgb 11.0 L, Hct 33.7 L, MCV 71.5 L, MCH 23.4 L, MCHC 32.6, RDW 18.2 H, Plt Count 347, MPV 8.7, Gran % 67.5, Lymph % (Auto) 24.5, [place] % (Auto) 6.4 H, Eos % (Auto) 1.0 L, Baso % (Auto) 0.6, Gran # 3.24, Lymph # 1.2, [place] # 0.3, Eos # 0.1, Baso # 0.03 FLOOR LABS 04/17/17 04/17/17 07:30 07:30 Fasting Glucose 91 Triglycerides 137 Cholesterol 189 LDL Cholesterol Direct 113 HDL Cholesterol 51 Free T4 0.89 TSH 3rd Generation 11.40 H 04/17/17 04/17/17 07:30 07:30 Fasting Glucose 91 RPR Nonreactive
--- NOTE | 2017-04-18 09:16 | CON ---
CHIEF COMPLAINT: Psych evaluation, COPD, asthma, hypothyroidism. HISTORY OF PRESENT ILLNESS: Ms. Britt Mccall, a 46-years old female with past medical history of bipolar, depression, thyroid cancer, status post partial removal of the lymph node, came to the emergency department with mother, who reported that worsening of symptoms since medication change six days ago. During the night, the patient has been talking to herself, more emotional and has been hallucinating and having tremors. The patient denies having hallucinations or talking to herself, but the patient's mother is a nurse and sister is also a nurse and even mother came in my office. Actually, the patient was in the hospital couple of days ago with new onset of seizures which involved twitching and was aware of the seizures happening, but at that time, psych evaluation was done, but the patient was cleared to discharge and the patient did not want to get admission in the psych unit. Mother came in to my office. I had a length of time discussion and I educated her that if she wants admission, then take her to [facility]. In [place], it is a voluntary admission. Now, the patient went home and came second time for the same above complaints about hallucination and delusion but do not want to hurt herself and do not want to hurt anybody else. PAST MEDICAL HISTORY: Hypertension, asthma, respiratory distress, seizures, diabetes mellitus type 2, acne, bipolar, depression, psychosis, right knee surgery, jaw fixation. FAMILY HISTORY: Father and mother noncontributory. HABITS: Never smoking. No drugs. No ethanol. ALLERGIES: THE PATIENT IS ALLERGIC TO CODEINE, CLOTRIMAZOLE, PROLIXIN, HALDOL, MUSHROOM, GEODON. HOME MEDICATIONS: Lisinopril, metformin, Parlodel, calcitriol, Lexapro, Lovenox, Latuda, Singulair, naproxen, Ventolin, Claritin. REVIEW OF SYSTEMS: The patient is seen and examined at the bedside in her room. Looking comfortable. No nausea, vomiting or diarrhea. No hematuria, no hematochezia. No swelling of the legs. No chest pain. No palpitations. No headache, no dizziness. As per patient, she is feeling better. PHYSICAL EXAMINATION: VITAL SIGNS: Temperature 98.7, pulse 72, blood pressure 107/59, and respiratory rate 18. HEENT: Head is normocephalic and atraumatic. Eyes; PERRLA. Extraocular muscles intact. Conjunctivae clear. Nose is patent. Mucous membranes moist. NECK: Supple. No carotid bruits. No JVD or thyromegaly. CHEST: Bilaterally symmetrical. HEART: S1 and S2 positive. LUNGS: Clear to auscultation. ABDOMEN: Soft. Bowel sounds present. No organomegaly. EXTREMITIES: No edema. No cyanosis. NEUROLOGIC: The patient is awake and alert. Moving all four extremities. No focal deficit. LABORATORY DATA: WBC 4.8, hemoglobin 11.0, hematocrit 33.7 and platelets 347. Sodium 140, potassium 3.9, BUN 9, creatinine 0.9, glucose 137. TSH 11.40. Urine has leukocyte esterase positive. Drug screening is negative. RPR nonreactive. ASSESSMENT AND PLAN: Ms. Britt Mccall, a 46 years old female with anemia, hyperglycemia, uncontrolled diabetes mellitus type 2, hypothyroidism, obesity, bipolar, depression, thyroid cancer with partial removal of the thyroid and lymph nodes, history of asthma, chronic obstructive pulmonary disease, seizures. The patient is admitted to Psychiatry who is taking care of the patient's depression and anxiety. Gastrointestinal and deep vein thrombosis prophylaxis. We will continue present treatment. Repeat labs. Anel Mendes MD
[2017-04-19] MEDS: Levothyroxine 125 MCG TAB PO SCH (06:43)
[2017-04-19] MEDS: Insulin Reg-LOW-Coverage SC SCH ×4 (09:34→22:02)
[2017-04-19] MEDS: Cholecalciferol 400 Intl Units Tab PO SCH (10:44)
--- NOTE | 2017-04-19 18:08 | PCM.PYCHPN ---
Psychiatric Progress Note - Psychiatric Progress Note Patient seen today, length of contact: 25 min Patient Chief Complaint: Patient feels she is been here for a seizure disorder onset Problems Identified/Issues Discussed: Patient has a long history of psychotic ideation but had not been hospitalized in a number of years Medical Problems: Recent onset seizure disorder, diabetes mellitus, acne, status post right knee surgery, status post thyroid cancer, status post partial removal of lymph node Diagnostic Results: Blood sugar 127 this a.m. DSM 5 Symptoms Update: Mood and affect appear to be improving. Patient not overtly psychotic. Insight marginal. Medication Change: No Medical Record Reviewed: Yes Consults ordered or reviewed: Weekend note reviewed Mental Status Examination - Cognitive Function Orientation: Person, Place, Time Memory: Intact Attention: WNL Concentration: Poor Association: WNL Decription of patient's judgement and insights: Marginal - Mood Mood: Neutral - Affect Affect: Blunted, Flat - Speech Speech: Appropriate, Soft - Formal Thought Process Formal Thought Process: Hallucinations (denies, however patient is an unreliable historian), Loosening of associations - Suicidal Ideation Suicidal Ideation: No - Homicidal Ideation Homicidal Ideation: No Goal/Treatment Plan - Goal/Treatment Plan Progress Toward Problem(s) and Goals/Treatment Plan: Patient appears to be improving. If this can be continues 1 more day patient can be discharged
[2017-04-20] MEDS: Levothyroxine 125 MCG TAB PO SCH (06:48)
[2017-04-20 07:05] VITALS: BP 137/80; PULSE 74; RESP 17; TEMP 97.4; O2SAT 98
[2017-04-20] MEDS: Cholecalciferol 400 Intl Units Tab PO SCH (08:21)
--- NOTE | 2017-04-20 08:46 | PN ---
DATE: 04/18/2017 SUBJECTIVE: The patient seen and examined on 04/18/2017, looking comfortable. No nausea, vomiting, or diarrhea. No hematuria or hematochezia. No swelling of the legs. No chest pain. No palpitation. No headache. No dizziness. PHYSICAL EXAMINATION: VITAL SIGNS: Temperature 98.1, pulse is 73, blood pressure 127/63, and respiratory rate 20. HEENT: Head is normocephalic, atraumatic. Eyes, PERRLA. Extraocular muscles are intact. Conjunctivae are clear. Nose is patent. NECK: Supple. No carotid bruits. No JVD or thyromegaly. CHEST: Bilateral symmetrical. HEART: S1 and S2 positive. LUNGS: Clear to auscultation. ABDOMEN: Soft. Bowel sounds positive. No organomegaly. EXTREMITIES: No edema and no cyanosis. NEUROLOGICAL: The patient is awake and alert. Moving all 4 extremities. No focal deficit. MEDICATIONS: Ativan, Caltrate, Celexa, Glucophage, insulin, Parlodel, Calcitrol, Singulair, Synthroid, Zestril, and Zyprexa. LABORATORY DATA: We do not have recent labs today, but I reviewed old labs. ASSESSMENT AND PLAN: Ms. Cal Oconnor is a 46-year-old female with multiple medical problems, history of hypertension, asthma, respiratory distress, seizures, diabetes mellitus type 2, bipolar depression, psychosis, right knee surgery, jaw fixation, thyroid gland surgery due to thyroid cancer, came to [facility] for psychiatric issues. Psychiatrist taking care of psychiatric issues. Medical issues stable. GI and DVT prophylaxis. Repeat labs. We will follow. Anel Mendes MD RUDY
[2017-04-20] MEDS: Insulin Reg-LOW-Coverage SC SCH (09:01)
--- NOTE | 2017-04-21 15:01 | PN ---
DATE: 04/19/2017 SUBJECTIVE: The patient is a 46-year-old female. The patient was seen and examined on 04/19/2017, looking comfortable, getting a bit better. Her hallucinations and delusions are getting better. Psychiatrist changed, psych medications helping her. No nausea, vomiting, or diarrhea. No hematuria or hematochezia. No swelling of the legs. No chest pain. No palpitations. No headache or dizziness. PHYSICAL EXAMINATION: VITAL SIGNS: Temperature 96.2, pulse 80, blood pressure 130/70, and respiratory rate 20. HEENT: Head is normocephalic and atraumatic. Eyes; PERRLA. Extraocular muscles intact. Conjunctivae clear. Nose is patent. Mucous membrane moist. NECK: Supple. No carotid bruit, JVD, or thyromegaly. CHEST: Bilaterally symmetrical. HEART: S1 and S2 positive. LUNGS: Clear to auscultation. ABDOMEN: Soft. Bowel sounds positive. No organomegaly. EXTREMITIES: No edema. No cyanosis. NEUROLOGIC: The patient is awake and alert. Moving all 4 extremities. No focal deficit. MEDICATIONS: Ativan, Caltrate, Celexa, Plavix, Glucophage, insulin, Parlodel, calcitriol, Singulair, Synthroid, and Ventolin. LABORATORY DATA: We do not have recent labs today, but reviewed old labs. ASSESSMENT AND PLAN: Ms. Britt Mccall is 46 years old lady with multiple medical problems, has a history of hypertension, asthma, respiratory distress, chronic obstructive pulmonary disease, seizure new onset, diabetes mellitus type 2, bipolar depression, psychosis, history of hypothyroidism, history of thyroid cancer, and thyroid surgery done in [facility]. Gastrointestinal and deep venous thrombosis prophylaxis. Repeat labs. Psychiatrist is on the case and we will followup. Anel Mendes MD
--- NOTE | 2017-04-21 21:51 | PN ---
DATE: 04/21/2017 SUBJECTIVE: The patient seen and examined on 04/21/2017, looking comfortable. Happy to go home. No nausea, vomiting, or diarrhea. No hematuria or hematochezia. No swelling of the legs. No chest pain or palpitation. It is back to her baseline. No hallucinations. PHYSICAL EXAMINATION: GENERAL: Temperature 97.4, pulse 74, blood pressure 167/86, respiratory rate 17. HEENT: Eyes, PERRLA. Extraocular muscles are intact. Conjunctivae are clear. Nose is patent. Mucous membrane moist. NECK: Supple. No carotid bruits. No JVD or thyromegaly. CHEST: Bilateral symmetrical. HEART: S1 and S2 positive. LUNGS: Clear to auscultation. ABDOMEN: Soft. Bowel sounds positive. No organomegaly. EXTREMITIES: No edema and no cyanosis. NEUROLOGICAL: The patient is awake and alert. Moving all 4 extremities. No focal deficit. MEDICATIONS: Insulin, Parlodel, Calcitrol, Singulair, Synthroid, Ventolin, vitamin D, Zestril, and Zyprexa. LABORATORY DATA: We do not have recent labs today, but I reviewed old labs. ASSESSMENT AND PLAN: The patient is a 46-year-old lady with history of bipolar, schizophrenia, has multiple Psych admission for limited with loosening of association. Actually, her psychiatrist gave her psych medications and according to her these medications are not suitable for her. After admission, she was a lot feeling better. History of hypertension, hypercholesterolemia, hypothyroidism, thyroid cancer, status post thyroid surgery, past chronic obstructive pulmonary disease, asthma, improved a lot and seen by Dr. Rizvi. We will follow up with her psychiatrist and primary care physician. Continue medicines prescription of psych medications by Dr. Rizvi. We will follow. Anel Mendes MD
--- NOTE | 2017-05-08 05:02 | DS ---
IDENTIFYING INFORMATION: The patient is a 46-year-old, single, -[place] female with an approximately 20 year psychiatric history that includes psychosis. She had been seen in the emergency room, which she explained was because she had a seizure. However, her mother indicated that the patient had become disorganized, more so at night, had been talking to herself, had become agitated, and thus become a focus of concern. She had also been in the emergency room four days prior to present admission and had been discharged to the [facility]. According to the patient, she had recently switched care from Dr. Wynn at the [facility], where she had been a patient for a period of time (but with Dr. Wynn having seen her on a single occasion while changing her medication, and then leaving the service of that agency). He had switched her to Latuda from Zyprexa that she had been on previously. The patient has been hospitalized psychiatrically approximately 3 to 4 times. The patient was born and grow up in [place], [place]. She had started to attend [employer], where she plans to reattend when she got better, but presently felt she could not because of her psychiatric condition. She stated that she has been on surgery for thyroid cancer this past August and had also a partial removal of a lymph node. She had been complaining of tremors in her arms and stiffness for the past 3 days. She also complained that she had been undergoing "seizures" which consisted of twitching movements. The patient indicated that she had stopped taking her Zyprexa about one week prior to admission and had also stopped taking Celexa. She felt that this regimen was causing her to gain weight and thus she was switched to Latuda and Lexapro. She also complained of a low grade fever and general body soreness. The patient has been exposed to a number of antipsychotics in the past. She has never been . She has a sister who is a psychiatric nurse at [facility] [employer] who herself has been under treatment for bipolar I disorder. This sister reportedly has also reported on the bizarreness of the patient's behavior. The patient's mood and affect improved while on the psychiatric unit. She felt that she had suffered from a seizure. The patient was not homicidal, suicidal or psychotic at the time of discharge. She had been under the medical consultative services of Dr. Mendes. Her history of hypertension, hypercholesterolemia, hypothyroidism, thyroid cancer, status post thyroid surgery, history of COPD, and asthma was noted and was stable at the time of her present hospitalization. CBC and differential on 04/16/2017 showed lowered hemoglobin of 11.0, hematocrit 33.7, MCV 71.5, MCH 23.4, eosinophil percentage 1.0 with elevated RDW of 18.2 and monocyte percent 6.4. An RPR was nonreactive. Her urine drug screen was negative. Urinalysis showed trace leukocyte esterase. Biochemical profile was within normal limits. The patient was not homicidal, suicidal, or psychotic at the time of discharge. DISCHARGE DIAGNOSIS: Psychosis, not otherwise specified. DISCHARGE MEDICATIONS: Lorazepam 1 mg p.r.n., Caltrate 600 mg daily, Celexa 10 mg daily, Claritin 1 mg daily, Glucophage 1000 mg b.i.d., insulin human regular-low, Parlodel 2.5 mg at bedtime, Singulair 10 mg daily, Synthroid 125 mcg daily. The patient was referred back to the [facility] (05/04/2017). Anand Rizvi MD/ PhD
== END 2017-04-20 13:58 | disposition home or self-care (01) | DRG 430 ==
LOC: ED 11:37 → PSYC 15:20
PROVIDERS: ADMIT Psychiatry & Neurology Addiction Medicine; ATTEND Psychiatry & Neurology Addiction Medicine
DX: F25.0 Schizoaffective disorder, bipolar type (principal); E11.65 Type 2 diabetes mellitus with hyperglycemia; I10 Essential (primary) hypertension; J44.9 Chronic obstructive pulmonary disease, unspecified; G40.909 Epilepsy, unspecified, not intractable, without status epilepticus; F22 Delusional disorders; E03.9 Hypothyroidism, unspecified; E78.00 Pure hypercholesterolemia, unspecified; D64.9 Anemia, unspecified; E66.9 Obesity, unspecified; F41.9 Anxiety disorder, unspecified; Z85.850 Personal history of malignant neoplasm of thyroid

== ENCOUNTER 2017-05-23 13:47 | Emergency (ER) | payer MEDICAID, OTHER ==
[2017-05-23 13:48] VITALS: BMI 36.6
[2017-05-23 14:01] VITALS: BP 114/72; PULSE 90; RESP 18; TEMP 98.7; O2SAT 97
--- NOTE | 2017-05-23 14:32 | ED PDOC ---
Arrival/HPI - General Chief Complaint: Med Refill Time Seen by Provider: 05/23/17 14:17 - History of Present Illness Narrative History of Present Illness (Text): 05/23/17 14:32 46yo female in the ER for Ativan, Celexa, Zyprexa medication refills. Pt states she could not obtain mental neil follow up appointment yet. Denies suicidal or homicidal ideation. No other complaints. Past Medical History - Provider Review Nursing Documentation Reviewed: Yes - Past History Past History: Non-Contributing - Infectious Disease Hx of Infectious Diseases: None - Tetanus Immunization Tetanus Immunization: Unknown - Cardiac Hx Cardiac Disorders: Yes Hx Hypertension: Yes - Pulmonary Hx Respiratory Disorders: Yes Hx Asthma: Yes - Neurological Hx Neurological Disorder: Yes Hx Seizures: Yes - HEENT Hx HEENT Disorder: No - Renal Hx Renal Disorder: No - Endocrine/Metabolic Hx Endocrine Disorders: Yes Hx Diabetes Mellitus Type 2: Yes - Hematological/Oncological Hx Blood Disorders: No - Integumentary Hx Dermatological Disorder: Yes (acne) - Musculoskeletal/Rheumatological Hx Musculoskeletal Disorders: Yes Hx Fractures: Yes - Gastrointestinal Hx Gastrointestinal Disorders: No - Genitourinary/Gynecological Hx Genitourinary Disorders: No - Psychiatric Hx Bipolar Disorder: Yes Hx Depression: Yes Hx Psychosis: Yes Hx Substance Use: No - Surgical History Hx Orthopedic Surgery: Yes (R knee) Other/Comment: jaw fixation - Anesthesia Hx Anesthesia: Yes Hx Anesthesia Reactions: No Hx Malignant Hyperthermia: No - Suicidal Assessment Feels Threatened In Home Enviroment: No Family/Social History Family/Social History: Unknown Family HX Smoking Status: Never Smoked Hx Alcohol Use: No Hx Substance Use: No Hx Substance Use Treatment: No Allergies/Home Meds Allergies/Adverse Reactions: Allergies codeine Allergy (Severe, Verified 05/23/17 13:55) ANAPHYLAXIS chlorpromazine [From Thorazine] Allergy (Verified 05/23/17 13:55) ANAPHYLAXIS fluphenazine [From Prolixin] Allergy (Verified 05/23/17 13:55) RASH haloperidol [From Haldol] Allergy (Verified 05/23/17 13:55) SHORTNESS OF BREATH mushroom Allergy (Verified 05/23/17 13:55) SHORTNESS OF BREATH ziprasidone [From Geodon] Allergy (Verified 05/23/17 13:55) REDNESS tardive dyskinesia Home Medications: Home Meds Medication Instructions Recorded Confirmed Metformin HCl [Metformin] 1,000 mg PO BID 04/15/12 05/23/17 Calcitriol [Rocaltrol] 0.25 mcg PO BID 04/12/17 05/23/17 Calcium Carbonate/Vitamin D3 1 tab PO DAILY 04/16/17 05/23/17 [Caltrate 600 Plus D3 Tablet] Albuterol HFA [Ventolin HFA 90 1 puff IH PRN PRN 05/23/17 05/23/17 mcg/actuation (8 g)] Physical Exam - Physical Exam Narrative Physical Exam (Text): - Review of Systems Constitutional: Normal. absent: Fatigue, Weight Change, Fevers Eyes: Normal ENT: denies sore throat, denies tristhmus Respiratory: Normal. absent: SOB, Cough, Sputum Cardiovascular: absent: Chest Pain, Palpitations, Syncope Gastrointestinal: Normal. absent: Abdominal Pain, Diarrhea, Nausea, Vomiting Genitourinary: Normal. absent: Dysuria, Frequency, Hematuria, vaginal bleeding Musculoskeletal: Normal. absent: Arthralgias, Back Pain, Neck Pain Skin: no rashes, no erythema Neurological: absent: Focal Weakness Endocrine: Normal Hemo/Lymphatic: Normal Psychiatric: No suicidal or homicidal ideations Physical exam Patient appears age appropriate in no distress, speaking full sentences without difficulty - Systems Exam Head: Present: Atraumatic, Normocephalic Pupils: Present: PERRL Extroacular Muscles: Present: EOMI Conjunctiva: Present: Normal Mouth: Present: Moist Mucous Membranes Neck: Present: Normal Range of Motion. No: MIDLINE TENDERNESS, Paraspinal Tenderness Respiratory/Chest: Present: Clear to Auscultation, Good Air Exchange. No: Respiratory Distress, Accessory Muscle Use, Tachypneic Cardiovascular: Present: Regular Rate and Rhythm, Normal S1, S2, Peripheal Pulses Present. No: Murmurs Abdomen: Present: Normal Bowel Sounds. No: Tenderness, Distention, Peritoneal Signs, Rebound, Guarding Back: Present: Normal Inspection. No: Midline Tenderness, Paraspinal Tenderness Upper Extremity: Present: Normal Inspection. No: Cyanosis, Edema Lower Extremity: Present: Normal Inspection. No: Edema Neurological: Present: GCS=15, Speech Normal, cranial nerves II through XII fully intact with no cerebellar abnormality, neurosensory fully intact. No focal neurological deficits. Skin: Present: Warm, Dry, Normal Color. No: Rashes Lymphatic: Present: OX3, NI, NC Psychiatric: Present: Alert, Oriented x 3, Normal Insight, Normal Concentration Vital Signs Reviewed: Yes Vital Signs Temp Pulse Resp BP Pulse Ox 05/23/17 14:00 98.7 F 90 18 114/72 97 Temperature: Afebrile Blood Pressure: Normal Pulse: Regular Respiratory Rate: Normal Appearance: Positive for: Well-Appearing Pain Distress: None Mental Status: Positive for: Alert and Oriented X 3 Medical Decision Making ED Course and Treatment: 05/23/17 14:[address] Rizvi's prescriptions pt in no distress states she will f/u with outpatient mental health asked to also have a neurologist referral Pt states she understands to return to the ER right away for new or worsening symptoms or for inability to f/u with PMD or specialist as instructed. Patient states that she fully agrees with and understands discharge instructions. States that she agrees with the plan and disposition. Verbalized and repeated discharge instructions and plan. I have given the patient opportunity to ask any additional questions. Disposition/Present on Arrival - Present on Arrival Any Indicators Present on Arrival: No History of DVT/PE: No History of Uncontrolled Diabetes: No Urinary Catheter: No History of Decub. Ulcer: No History Surgical Site Infection Following: None - Disposition Have Diagnosis and Disposition been Completed?: Yes Diagnosis: Medication refill Disposition: HOME/ ROUTINE Disposition Time: 14:29 Patient Plan: Discharge Condition: GOOD Discharge Instructions (ExitCare): Medicine Refill (ED) Additional Instructions: PLEASE RETURN TO THE EMERGENCY DEPARTMENT FOR NEW OR WORSENING SYMPTOMS. RETURN RIGHT AWAY IF YOU CANNOT FOLLOW UP WITH YOUR PRIMARY CARE DOCTOR, CLINIC, OR SPECIALIST IN 1-2 DAYS. Prescriptions: Citalopram [celeXA] 10 mg PO DAILY #7 tab LORazepam [Ativan] 1 mg PO Q4 PRN #14 tab PRN Reason: Agitation OLANZapine [Zyprexa] 10 mg PO DAILY #7 tab Referrals: Mike Cartwright MD [Staff Provider] - Follow up with primary Royal Cartwright MD [Staff Provider] - Follow up with primary Anand Rizvi MD [Staff Provider] - Follow up with primary Debby Suero MD [Staff Provider] - Follow up with primary [facility] [Outside] - Follow up with primary
== END 2017-05-23 14:47 | disposition home or self-care (01) ==
LOC: ED 13:47
DX: Z76.0 Encounter for issue of repeat prescription (principal); F31.9 Bipolar disorder, unspecified; I10 Essential (primary) hypertension; E11.9 Type 2 diabetes mellitus without complications

== ENCOUNTER 2017-10-05 11:09 | Emergency (ER) | payer MEDICAID, OTHER ==
[2017-10-05 11:21] VITALS: BMI 35.9
[2017-10-05 11:30] VITALS: RESP 16; TEMP 98.5
--- NOTE | 2017-10-05 11:55 | ED PDOC ---
Arrival/HPI - General Chief Complaint: Syncope Time Seen by Provider: 10/05/17 11:29 Historian: Patient, Family EM Caveat: Acuity of Condition - Critical Care Narrative Critical Care (Text): 10/05/17 11:47 Pt is a 47 yo F BIB mother for a syncopal event and head trauma at 6am this morning. Pt reports recently having the flu 1 week ago and completed treatment of Tamiflu as per Dr. Mendes, her PMD. Pt states that she woke up to void and once on the toilet she began to feel cold, clammy and lightheaded. She suddenly passed out falling off the toilet, hitting the left side of her head/face on the side of the tub before landing on the floor. Mother states that she immediately awoke to help her up. Mother states she did not respond for about 8- 10 seconds. Pt has PMH of thyroid CA, HTN, DMII, bipolar disorder and seizures. Denies cp, sob, LIRIANO, n/v/d, change in stool or urine, GI blood loss; has had heavy menses in the past and received iron supplementation. 10/05/17 12:54 - History of Present Illness Time/Duration: 4-6 hours Symptom Onset: Sudden Symptom Course: Improving Activities at Onset: Rest Context: Home Past Medical History - Provider Review Nursing Documentation Reviewed: Yes - Travel History Have you recently traveled outside [place] w/in the past 3 mons?: No - Past History Past History: Non-Contributing - Infectious Disease Hx of Infectious Diseases: None - Tetanus Immunization Tetanus Immunization: Unknown - Cardiac Hx Cardiac Disorders: Yes Hx Hypertension: Yes - Pulmonary Hx Respiratory Disorders: Yes Hx Asthma: Yes - Neurological Hx Neurological Disorder: Yes Hx Seizures: Yes - HEENT Hx HEENT Disorder: No - Renal Hx Renal Disorder: No - Endocrine/Metabolic Hx Endocrine Disorders: Yes Hx Diabetes Mellitus Type 2: Yes - Hematological/Oncological Hx Blood Disorders: Yes Hx Cancer: Yes (thyroid) - Integumentary Hx Dermatological Disorder: Yes (acne) - Musculoskeletal/Rheumatological Hx Musculoskeletal Disorders: Yes Hx Fractures: Yes - Gastrointestinal Hx Gastrointestinal Disorders: No - Genitourinary/Gynecological Hx Genitourinary Disorders: No - Psychiatric Hx Bipolar Disorder: Yes Hx Depression: Yes Hx Psychosis: Yes Hx Substance Use: No - Surgical History Hx Orthopedic Surgery: Yes (R knee) Hx Thyroidectomy: Yes Other/Comment: jaw fixation, partial lymph node removal right side - Anesthesia Hx Anesthesia: Yes Hx Anesthesia Reactions: No Hx Malignant Hyperthermia: No - Suicidal Assessment Feels Threatened In Home Enviroment: No Family/Social History - Physician Review Nursing Documentation Reviewed: Yes Family/Social History: Diabetes, Hypertension Smoking Status: Never Smoked Hx Alcohol Use: No Hx Substance Use: No Hx Substance Use Treatment: No Allergies/Home Meds Allergies/Adverse Reactions: Allergies codeine Allergy (Severe, Verified 10/05/17 11:20) ANAPHYLAXIS chlorpromazine [From Thorazine] Allergy (Verified 10/05/17 11:20) ANAPHYLAXIS fluphenazine [From Prolixin] Allergy (Verified 10/05/17 11:20) RASH haloperidol [From Haldol] Allergy (Verified 10/05/17 11:20) SHORTNESS OF BREATH mushroom Allergy (Verified 10/05/17 11:20) SHORTNESS OF BREATH ziprasidone [From Geodon] Allergy (Verified 10/05/17 11:20) REDNESS tardive dyskinesia Home Medications: Home Meds Medication Instructions Recorded Confirmed Metformin HCl [Metformin] 1,000 mg PO BID 04/15/12 10/05/17 Calcitriol [Rocaltrol] 0.25 mcg PO DAILY 04/12/17 10/05/17 Albuterol HFA [Ventolin HFA 90 1 puff IH PRN PRN 05/23/17 10/05/17 mcg/actuation (8 g)] Calcium Carbonate/Vitamin D3 500 mg PO BID 10/05/17 10/05/17 [Oyster Shell Calcium Tablet] Carbamazepine 400 mg PO BID 10/05/17 10/05/17 Citalopram [celeXA] 20 mg PO DAILY 10/05/17 10/05/17 LORazepam [Ativan] 1 mg PO BID 10/05/17 10/05/17 Levonorgestrel-Ethin Estradiol 1 each PO DAILY 10/05/17 10/05/17 [Vienva-28 Tablet] Levothyroxine [Synthroid] 150 mcg PO 0700 10/05/17 10/05/17 OLANZapine [Zyprexa] 15 mg PO DAILY 10/05/17 10/05/17 Review of Systems - Physician Review All systems were reviewed & negative as marked: Yes - Review of Systems Systems not reviewed;Unavailable: Acuity of Condition Constitutional: Fatigue, Fevers, Night Sweats Eyes: Normal ENT: Normal Respiratory: SOB, Cough Cardiovascular: Normal Gastrointestinal: Normal Genitourinary Female: Normal Musculoskeletal: Normal Skin: Normal Neurological: Dizziness Endocrine: Normal Hemo/Lymphatic: Normal Psychiatric: Normal Physical Exam Vital Signs Reviewed: Yes Vital Signs Temp Pulse Resp BP Pulse Ox 10/05/17 13:44 79 16 129/89 99 10/05/17 11:30 98.5 F 81 16 117/65 97 Temperature: Afebrile Blood Pressure: Normal Pulse: Regular Respiratory Rate: Normal Appearance: Positive for: Well-Appearing, Non-Toxic, Comfortable Pain Distress: None Mental Status: Positive for: Alert and Oriented X 3 Finger Stick Blood Glucose: 99 (home fs 119 at 6:30) - Systems Exam Head: Present: Normocephalic, Tenderness (left temporal and infra orbital ), Contusion (left temporal and infra orbital ), Swelling (left temporal and infra orbital ) Pupils: Present: PERRL Extroacular Muscles: Present: EOMI Conjunctiva: Present: Normal Mouth: Present: Moist Mucous Membranes Neck: Present: Normal Range of Motion Respiratory/Chest: Present: Clear to Auscultation, Good Air Exchange. No: Respiratory Distress, Accessory Muscle Use Cardiovascular: Present: Regular Rate and Rhythm, Normal S1, S2. No: Murmurs Abdomen: Present: Normal Bowel Sounds. No: Tenderness, Distention, Peritoneal Signs Back: Present: Normal Inspection Upper Extremity: Present: Normal Inspection. No: Cyanosis, Edema Lower Extremity: Present: Normal Inspection. No: Edema Neurological: Present: GCS=15, CN II-XII Intact, Speech Normal, Motor Func Grossly Intact (Upper and lower extremity 4/5), Normal Sensory Function, Normal Cerebellar Funct Skin: Present: Warm, Dry, Normal Color, Abrasion (left temporal and infra orbital ). No: Rashes Psychiatric: Present: Alert, Oriented x 3, Normal Insight, Normal Concentration , Normal Affect Medical Decision Making ED Course and Treatment: 10/05/17 11:55 Impression Pt is a 47 yo F BIB mother for a syncopal event and head trauma at 6am this morning. On PE, mild swelling and abrasion over the left orbital and zygomatic aspect; no laceraion, no hyphema, no tomlinson sign and no raccoon eyes Pt A&Ox3, lungs CTAB, afebrile Plan maxillofacial CT to r/o orbital or skull fx cbc, cmp, ua to r/o infection or underlying cause assess and dipso when stable Progress Note: Pt is resting in bed with no distress or pain; CT findings reveal no trauma or other acute findings Labs indicate lower values for hemoglobin and hematocrit and elevated RDW likely d/t iron deficiency anemia Discussed findings w pt who revealed heavy menses and anemia in the past that was treated with supplementation advised to follow up with Dr. Mendes in the next day or two to avoid another syncopal event 10/05/17 13:17 - Lab Interpretations Lab Results: 10/05/17 12:26 10/05/17 12:26 Lab Results 10/05/17 12:26: Sodium 143, Potassium 4.4, Chloride 107, Carbon Dioxide 25, Anion Gap 16, BUN 11, Creatinine 0.8, Est GFR ( Amer) > 60, Est GFR (Non- Af Amer) > 60, Random Glucose 102, Calcium 9.8, Total Bilirubin 0.2, AST 20, ALT 37, Alkaline Phosphatase 60, Total Protein 6.7, Albumin 3.8, Globulin 2.9, Albumin/Globulin Ratio 1.3 10/05/17 12:26: WBC 4.8, RBC 4.69, Hgb 10.4 L, Hct 33.2 L, MCV 70.8 L, MCH 22.2 L, MCHC 31.3, RDW 17.9 H, Plt Count 332, MPV 8.8 10/05/17 11:21: POC Glucose (mg/dL) 99 I have reviewed the lab results: Yes Interpretation: Abnormal lab values (decreased Hb and Hct, elevated RDW) - RAD Interpretation Narrative RAD Interpretations (Text): 10/05/17 13:15 PROCEDURE: CT MAXILLOFACIAL BONES WITHOUT CONTRAST HISTORY: Fall COMPARISON: None TECHNIQUE: Contiguous axial CT images of the maxillofacial bones were obtained. Coronal and sagittal reformats were generated. Radiation dose: Total exam DLP = 635 mGy-cm. This CT exam was performed using one or more of the following dose reduction techniques: Automated exposure control, adjustment of the mA and/or kV according to patient size, and/or use of iterative reconstruction technique. FINDINGS: NASAL BONES: Unremarkable. ORBITS: Unremarkable. PARANASAL SINUSES/ MASTOIDS: Clear. MAXILLA: Unremarkable. MANDIBLE/ TEMPOROMANDIBULAR JOINTS: Unremarkable. SKULL BASE: Unremarkable. TEMPORAL BONES: Middle ears and mastoid grossly unremarkable. OTHER FINDINGS: None. IMPRESSION: Unremarkable non contrast enhanced CT of the maxillofacial bones. Radiology Orders: 10/05/17 11:46 MAXILLOFACIAL W/O CONTRAST [CT] Stat Disposition/Present on Arrival - Present on Arrival Any Indicators Present on Arrival: No History of DVT/PE: No History of Uncontrolled Diabetes: No Urinary Catheter: No History of Decub. Ulcer: No History Surgical Site Infection Following: None - Disposition Have Diagnosis and Disposition been Completed?: Yes Diagnosis: Vasovagal episode, Atypical syncope Disposition: HOME/ ROUTINE Disposition Time: 13:30 Patient Plan: Discharge Condition: STABLE Discharge Instructions (ExitCare): Syncope (ED), Iron Deficiency Anemia (ED) Additional Instructions: Deavince De La Torre, We advise that you continue to rest at home, drink plenty of fluids and eat light meals as you recover from the flu. When you don't eat and drink enough fluids, you can feel weak and lightheaded, sometimes resulting in fainting. If you faint again or your fever fails to respond to Tylenol, experience chest pain , shortness of breath, return to the emergency department to be reassessed. Please follow up with Dr. Mendes in the next 24-48 hours. All the best in your recovery! Prescriptions: Acetaminophen [Acetaminophen Extra Strength] 500 mg PO Q8 5 Days #15 tablet Referrals: Anel Mendes MD [Primary Care Provider] - Follow up with primary Forms: [facility] (Spanish), WORK NOTE
[2017-10-05 12:41] LABS: HEMOGLOBIN 10.4 g/dL (12.0-16.0); MEAN CELL VOLUME 70.8 fl (80.0-105.0); MEAN CORPUSCULAR HEMOGLOBIN 22.2 pg (25.0-35.0); MEAN CORPUSCULAR HGB CONC 31.3 g/dl (31.0-37.0); MEAN PLATELET VOLUME 8.8 fl (7.0-11.0); RBC 4.69 10^6/uL (3.5-6.1); RED CELL DISTRIBUTION WIDTH 17.9 % (11.5-14.5); WHITE BLOOD COUNT 4.8 10^3/ul (4.5-11.0)
[2017-10-05 12:46] LABS: ALB/GLOB RATIO 1.3 (1.1-1.8)
[2017-10-05 12:51] LABS: ALBUMIN 3.8 g/dL (3.0-4.8); ALT/SGPT 37 U/L (7-56); AST/SGOT 20 U/L (14-36); BLOOD UREA NITROGEN 11 mg/dL (7-21); CALCIUM 9.8 mg/dL (8.4-10.5); GFR AFRICAN-AMERICAN > 60; GFR NON-AFRICAN AMERICAN > 60
--- NOTE | 2017-10-05 13:11 | CT ---
PROCEDURE: CT MAXILLOFACIAL BONES WITHOUT CONTRAST HISTORY: Fall COMPARISON: None TECHNIQUE: Contiguous axial CT images of the maxillofacial bones were obtained. Coronal and sagittal reformats were generated. Radiation dose: Total exam DLP = 635 mGy-cm. This CT exam was performed using one or more of the following dose reduction techniques: Automated exposure control, adjustment of the mA and/or kV according to patient size, and/or use of iterative reconstruction technique. FINDINGS: NASAL BONES: Unremarkable. ORBITS: Unremarkable. PARANASAL SINUSES/ MASTOIDS: Clear. MAXILLA: Unremarkable. MANDIBLE/ TEMPOROMANDIBULAR JOINTS: Unremarkable. SKULL BASE: Unremarkable. TEMPORAL BONES: Middle ears and mastoid grossly unremarkable. OTHER FINDINGS: None. IMPRESSION: Unremarkable non contrast enhanced CT of the maxillofacial bones.
[2017-10-05 13:44] VITALS: BP 129/89; PULSE 79; O2SAT 99
== END 2017-10-05 13:44 | disposition home or self-care (01) ==
LOC: ED 11:09
DX: R55 Syncope and collapse (principal); E11.9 Type 2 diabetes mellitus without complications; I10 Essential (primary) hypertension; Z85.850 Personal history of malignant neoplasm of thyroid; Z82.49 Family history of ischemic heart disease and other diseases of the circulatory system

== ENCOUNTER 2017-12-24 14:11 | Emergency (ER) | payer OTHER ==
[2017-12-24 14:53] VITALS: BMI 34.7
--- NOTE | 2017-12-24 15:46 | ED PDOC ---
Arrival/HPI - General Chief Complaint: GI Problem Time Seen by Provider: 12/24/17 15:37 Historian: Patient, Parent - History of Present Illness Narrative History of Present Illness (Text): 12/24/17 15:39 Pt is a 47 yr old female with PMH of psychiatric issues, asthma and DMII, who presents today with her mother for mild and diffuse abdominal pain along with light-colored stool for past 3 weeks. Reports mild epigastric pain after eating which dissipates after 60 minutes Pt says she was seen by Dr. Mendes who gave her an antacid to be taken daily but pt says it does not help. When asked why she came in today to be evaluated, she replied that she's simply tired of dealing with the discomfort. Mother reports a fever of 100.2F 6 days ago. Denies nausea, vomiting, diarrhea, change in urine, back pain, shortness of breath, chest pain, arm or jaw pain, trauma, or any other complaints Time/Duration: < month Symptom Onset: Gradual Symptom Course: Unchanged Quality: Aching Severity Level: 4 Activities at Onset: Rest Context: Home Past Medical History - Provider Review Nursing Documentation Reviewed: Yes - Travel History Have you recently traveled outside [place] w/in the past 3 mons?: No - Past History Past History: Non-Contributing - Infectious Disease Hx of Infectious Diseases: None - Tetanus Immunization Tetanus Immunization: Unknown - Cardiac Hx Cardiac Disorders: Yes Hx Hypertension: Yes - Pulmonary Hx Respiratory Disorders: Yes Hx Asthma: Yes - Neurological Hx Neurological Disorder: Yes Hx Seizures: Yes - HEENT Hx HEENT Disorder: No - Renal Hx Renal Disorder: No - Endocrine/Metabolic Hx Endocrine Disorders: Yes Hx Diabetes Mellitus Type 2: Yes - Hematological/Oncological Hx Blood Disorders: Yes Hx Cancer: Yes (thyroid) - Integumentary Hx Dermatological Disorder: Yes (acne) - Musculoskeletal/Rheumatological Hx Musculoskeletal Disorders: Yes Hx Fractures: Yes - Gastrointestinal Hx Gastrointestinal Disorders: No - Genitourinary/Gynecological Hx Genitourinary Disorders: No - Psychiatric Hx Anxiety: Yes Hx Bipolar Disorder: Yes Hx Depression: Yes Hx Psychosis: Yes Hx Substance Use: No - Surgical History Hx Orthopedic Surgery: Yes (R knee) Hx Thyroidectomy: Yes Other/Comment: jaw fixation, partial lymph node removal right side - Anesthesia Hx Anesthesia: Yes Hx Anesthesia Reactions: No Hx Malignant Hyperthermia: No - Suicidal Assessment Feels Threatened In Home Enviroment: No Family/Social History - Physician Review Nursing Documentation Reviewed: Yes Family/Social History: Unknown Family HX Smoking Status: Never Smoked Hx Alcohol Use: No Hx Substance Use: No Hx Substance Use Treatment: No Allergies/Home Meds Allergies/Adverse Reactions: Allergies codeine Allergy (Severe, Verified 12/24/17 14:51) ANAPHYLAXIS chlorpromazine [From Thorazine] Allergy (Verified 12/24/17 14:51) ANAPHYLAXIS fluphenazine [From Prolixin] Allergy (Verified 12/24/17 14:51) RASH haloperidol [From Haldol] Allergy (Verified 12/24/17 14:51) SHORTNESS OF BREATH mushroom Allergy (Verified 12/24/17 14:51) SHORTNESS OF BREATH ziprasidone [From Geodon] Allergy (Verified 12/24/17 14:51) REDNESS tardive dyskinesia Home Medications: Home Meds Medication Instructions Recorded Confirmed Metformin HCl [Metformin] 1,000 mg PO BID 04/15/12 12/24/17 Calcitriol [Rocaltrol] 0.25 mcg PO DAILY 04/12/17 12/24/17 Albuterol HFA [Ventolin HFA 90 1 puff IH PRN PRN 05/23/17 12/24/17 mcg/actuation (8 g)] Calcium Carbonate/Vitamin D3 500 mg PO BID 10/05/17 12/24/17 [Oyster Shell Calcium Tablet] Carbamazepine 400 mg PO BID 10/05/17 12/24/17 Citalopram [celeXA] 20 mg PO DAILY 10/05/17 12/24/17 LORazepam [Ativan] 1 mg PO BID 10/05/17 12/24/17 Levonorgestrel-Ethin Estradiol 1 each PO DAILY 10/05/17 12/24/17 [Vienva-28 Tablet] Levothyroxine [Synthroid] 150 mcg PO 0700 10/05/17 12/24/17 OLANZapine [Zyprexa] 15 mg PO DAILY 10/05/17 12/24/17 Review of Systems - Review of Systems Constitutional: Normal Eyes: Normal ENT: Normal Respiratory: Normal. absent: Cough Cardiovascular: Normal. absent: Chest Pain Gastrointestinal: Abdominal Pain (diffuse), Stool Changes (light brown), Appetite Changes. absent: Constipation, Diarrhea, Nausea, Vomiting Genitourinary Female: Normal. absent: Dysuria, Urine Output Changes Musculoskeletal: Normal Skin: Normal Neurological: Normal Endocrine: Normal Hemo/Lymphatic: Normal Psychiatric: Normal Physical Exam Vital Signs Reviewed: Yes Vital Signs Temp Pulse Resp BP Pulse Ox 12/24/17 18:47 98.1 F 82 16 128/76 99 12/24/17 16:46 72 16 130/78 99 12/24/17 14:51 98.9 F 87 18 132/91 H 98 Temperature: Afebrile Blood Pressure: Normal Pulse: Regular Respiratory Rate: Normal Appearance: Positive for: Well-Appearing, Non-Toxic, Comfortable Pain Distress: Mild Mental Status: Positive for: Alert and Oriented X 3 - Systems Exam Head: Present: Atraumatic, Normocephalic Pupils: Present: PERRL Extroacular Muscles: Present: EOMI Conjunctiva: Present: Normal Mouth: Present: Moist Mucous Membranes Neck: Present: Normal Range of Motion Respiratory/Chest: Present: Clear to Auscultation, Good Air Exchange. No: Respiratory Distress, Accessory Muscle Use Cardiovascular: Present: Regular Rate and Rhythm, Normal S1, S2. No: Murmurs Abdomen: Present: Tenderness (RUQ and RLQ; mild), Normal Bowel Sounds. No: Distention, Peritoneal Signs, Rebound, Guarding, McBurney's Point Tender, Rovsing's Sign Present Back: Present: Normal Inspection. No: CVA Tenderness, Midline Tenderness Upper Extremity: Present: Normal Inspection. No: Cyanosis, Edema Lower Extremity: Present: Normal Inspection. No: Edema Neurological: Present: GCS=15, CN II-XII Intact, Speech Normal Skin: Present: Warm, Dry, Normal Color. No: Rashes Psychiatric: Present: Alert, Oriented x 3, Normal Insight, Normal Concentration Medical Decision Making ED Course and Treatment: 12/24/17 15:46 Impression Pt is a 47 yr old female with PMH of psychiatric issues and asthma who presents today with her mother for mild and diffuse abdominal pain along with light- colored stool for past 3 weeks. Plan Labs, Urinalysis Abdominal CT 12/24/17 18:[address] indicates a fibroid-like mass by the uterus and fecal impaction but no obstruction dw pt and advised Pelvic US to ascertain mass; pt and mother requested to see Dr. Mendes to follow up. Urinalysis showed moderate amounts of Leuk est and 2-5 wbc-->will give script to be filled if symptomatic; counseled on UTI symptoms Assess and dispo home - Lab Interpretations Lab Results: 12/24/17 16:14 12/24/17 16:14 Lab Results 12/24/17 16:14: Sodium 140, Potassium 3.9, Chloride 102, Carbon Dioxide 26, Anion Gap 16, BUN 7, Creatinine 0.8, Est GFR ( Amer) > 60, Est GFR (Non- Af Amer) > 60, Random Glucose 105, Calcium 9.3, Total Bilirubin 0.1 L, AST 49 H D, ALT 90 H, Alkaline Phosphatase 82, Total Protein 7.8, Albumin 4.6, Globulin 3.1, Albumin/Globulin Ratio 1.5, Lipase 147 12/24/17 16:14: WBC 6.5 D, RBC 5.16, Hgb 12.2, Hct 37.3, MCV 72.3 L, MCH 23.6 L , MCHC 32.7, RDW 16.5 H, Plt Count 436, MPV 8.5, Gran % 68.5 H, Lymph % (Auto) 20.4 L, [place] % (Auto) 10.0 H, Eos % (Auto) 0.6 L, Baso % (Auto) 0.5, Gran # 4.44 , Lymph # (Auto) 1.3, [place] # (Auto) 0.7 H, Eos # (Auto) 0.0, Baso # (Auto) 0.03 12/24/17 16:12: Urine Color Yellow, Urine Appearance Cloudy, Urine pH 5.5, Ur Specific [place] 1.025, Urine Protein 30 H, Urine Glucose (UA) Negative, Urine Ketones Trace H, Urine Blood Negative, Urine Nitrate Negative, Urine Bilirubin Negative, Urine Urobilinogen 0.2, Ur Leukocyte Esterase Moderate H, Urine RBC 0 - 2, Urine WBC 2 - 5, Ur Epithelial Cells 4 - 5, Urine Bacteria Few, Urine Other Uyeast - RAD Interpretation Radiology Orders: 12/24/17 15:51 ABD & PELVIS W/O PO OR IV CONT [CT] Stat Disposition/Present on Arrival - Present on Arrival Any Indicators Present on Arrival: Yes History of DVT/PE: No History of Uncontrolled Diabetes: No Urinary Catheter: No History of Decub. Ulcer: No History Surgical Site Infection Following: None - Disposition Have Diagnosis and Disposition been Completed?: Yes Diagnosis: Constipation, Gastritis, Urinary tract infection Disposition: HOME/ ROUTINE Disposition Time: 18:17 Patient Plan: Discharge Condition: GOOD Discharge Instructions (ExitCare): Constipation in Adults, Urinary Tract Infection, Adult (DC) Additional Instructions: Britt, thank you for letting us take care of you today. Your provider was LUISA Wang. You were treated for Constipation. The emergency medical care you received today was directed at your acute symptoms. If you were prescribed any medication, please fill it and take as directed. It may take several days for your symptoms to resolve. Return to the Emergency Department if your symptoms worsen, do not improve, or if you have any other problems. Please contact your doctor or call one of the physicians/clinics you have been referred to that are listed on the Patient Visit Information form that is included in your discharge packet. Bring any paperwork you were given at discharge with you along with any medications you are taking to your follow up visit. Our treatment cannot replace ongoing medical care by a primary care provider (PCP) outside of the emergency department. Thank you for allowing the [facility] team to be part of your care today. If you had a blood, urine, or wound culture: It will take several days for the results, if any change in treatment is needed we will contact you. Prescriptions: Docusate Sodium [Colace] 100 mg PO BID 5 Days #10 capsule Nitrofurantoin Macrocrystals [Macrobid] 100 mg PO BID 7 Days #14 cap Referrals: Anel Mendes MD [Primary Care Provider] - Follow up with primary Forms: [place] (Estonian)
[2017-12-24 16:35] LABS: BASO # 0.03 K/mm3 (0.0-2.0); BASO % 0.5 % (0.0-3.0); EOS % 0.6 % (1.5-5.0); GRAN # 4.44 (1.4-6.5); GRAN % 68.5 % (50.0-68.0); HEMOGLOBIN 12.2 g/dL (12.0-16.0); LYMPH # 1.3 (1.2-3.4); LYMPH % 20.4 % (22.0-35.0); MEAN CELL VOLUME 72.3 fl (80.0-105.0); MEAN CORPUSCULAR HEMOGLOBIN 23.6 pg (25.0-35.0); MEAN CORPUSCULAR HGB CONC 32.7 g/dl (31.0-37.0); MEAN PLATELET VOLUME 8.5 fl (7.0-11.0); MONO # 0.7 (0.1-0.6); RBC 5.16 10^6/uL (3.5-6.1); RED CELL DISTRIBUTION WIDTH 16.5 % (11.5-14.5); WHITE BLOOD COUNT 6.5 10^3/ul (4.5-11.0)
[2017-12-24 16:45] LABS: ALB/GLOB RATIO 1.5 (1.1-1.8); ALBUMIN 4.6 g/dL (3.0-4.8); ALT/SGPT 90 U/L (7-56); AST/SGOT 49 U/L (14-36); BLOOD UREA NITROGEN 7 mg/dL (7-21); CALCIUM 9.3 mg/dL (8.4-10.5); GFR AFRICAN-AMERICAN > 60; GFR NON-AFRICAN AMERICAN > 60; LIPASE 147 U/L (23-300)
[2017-12-24 16:57] LABS: PH,URINE 5.5 (4.7-8.0); URINE APPEARANCE CLOUDY (CLEAR); URINE BILIRUBIN NEGATIVE (NEGATIVE); URINE BLOOD NEGATIVE (NEGATIVE); URINE COLOR YELLOW (YELLOW); URINE GLUCOSE (UA) NEGATIVE (NEGATIVE); URINE LEUKOCYTE ESTERASE MODERATE Leu/uL (NEGATIVE); URINE PROTEIN 30 mg/dL (<30 mg/dL); URINE UROBILINOGEN 0.2 E.U./dL (<1 E.U./dL)
[2017-12-24 17:11] LABS: URINE BACTERIA FEW (NEG); URINE RBC 0 - 2 /hpf (0-2)
--- NOTE | 2017-12-24 17:41 | CT ---
PROCEDURE: CT scan abdomen and pelvis dated 12/24/2017 HISTORY: Abdominal pain. COMPARISON: None. TECHNIQUE: Contiguous axial images of the abdo abdomen and pelvis performed of without oral or intravenous contrast material. Additional 2 dimensional sagittal and coronal reformats provided. Reformats generated. Radiation dose: Total exam DLP = 943.[address] exam was performed using one or more of the following dose reduction techniques: Automated exposure control, adjustment of the mA and/or kV according to patient size, and/or use of iterative reconstruction technique. FINDINGS: LOWER THORAX: Lung bases are clear. No minor atelectasis and scarring changes both posterior sulci. Lungs bases are otherwise clear. No infiltrate effusion or basilar pneumothorax. There is a tiny hiatal hernia. Heart size within range of normal. No significant pericardial effusion. LIVER: Liver exhibits normal size. No evidence of obvious hepatic mass or collection seen on this noncontrast study. GALLBLADDER AND BILE DUCTS: The gallbladder is physiologically distended. No evidence of intraluminal gallbladder calculi. PANCREAS: Pancreas appears unremarkable without masses collections or calcifications. SPLEEN: Spleen exhibits normal size and attenuation pattern without mass collection or calcification. ADRENALS: There are no adrenal lesions. KIDNEYS AND URETERS: Kidneys demonstrate relatively symmetric size. No evidence of nephrolithiasis or hydronephrosis BLADDER: Urinary bladder is collapsed on a compressed by a large anterior pelvic mass REPRODUCTIVE: There is a soft tissue mass density which measures approximately 7.3 trans x 5.7cc x 4.7ap cm in the anterior pelvis that abuts the anterior the uterine body and superior margin of the bladder and may represent a large exophytic fibroid. Recommend followup pelvic ultrasound further evaluation. APPENDIX: Normal-appearing appendix best seen on coronal image number [id number]. No evidence of acute appendicitis Unremarkable. BOWEL: Evaluation of the bowel is limited due to the lack of oral contrast. The stomach is incompletely distended with food debris and air. Visualized loops of small bowel exhibit normal contour and caliber. No evidence of acute mechanical small bowel obstruction. . Stool and air seen throughout the large bowel consistent with mild constipation. . PERITONEUM: Unremarkable. No fluid collection. No free air. There is a tiny fat containing umbilical hernia. LYMPH NODES: No significant lymphadenopathy VASCULATURE: No evidence of aortic or iliac artery aneurysm. BONES: Mild multilevel degenerative spondylosis of the lower thoracic and lumbar spine. OTHER FINDINGS: None. IMPRESSION: There is a large soft tissue mass in the anterior aspect of the pelvis which abuts the anterior margin of the uterus and superior margin of the urinary bladder. This could represent a large exophytic fibroid. Pelvic ultrasound followup recommended. . Note that the lesion does compress the urinary bladder Findings consistent with constipation.
[2017-12-24 18:47] VITALS: BP 128/76; PULSE 82; RESP 16; TEMP 98.1; O2SAT 99
== END 2017-12-24 18:47 | disposition home or self-care (01) ==
LOC: ED 14:11
DX: K29.70 Gastritis, unspecified, without bleeding (principal); N39.0 Urinary tract infection, site not specified; K59.00 Constipation, unspecified; I10 Essential (primary) hypertension; E11.9 Type 2 diabetes mellitus without complications

== ENCOUNTER 2018-10-26 15:55 | Emergency (ER) | payer OTHER ==
[2018-10-26 16:22] VITALS: RESP 18; TEMP 97.3; BMI 29.3
--- NOTE | 2018-10-26 16:53 | ED PDOC ---
Arrival/HPI - General Chief Complaint: Seizure Historian: Patient - History of Present Illness Narrative History of Present Illness (Text): 10/26/18 16:53 48 year old female, with past medical history hypertension, diabetes and seizure, presents to the ED for evaluation of episodes of seizure since yesterday. Patient informs episodes of unwitnessed seizure last night and today half an hour prior to arrival. Patient states she was in bed for both times and denies any head injury or loss of consciousness at the time. Patient informs feeling uncoordinated following the episodes but denies any tongue biting or urinary or bowel incontinence. Patient informs non-compliance with her seizure medication secondary to insurance complication. Patient denies any other associated somatic complaints. Patient denies any fevers, chills, headache, dizziness, chest pain, shortness of breath, dyspnea on exertion, cough, abdominal pain, nausea, vomiting, diarrhea, back pain, neck pain, or any other complaints. Time/Duration: 24 hours Symptom Onset: Gradual Symptom Course: Unchanged Activities at Onset: Light Context: Home Past Medical History - Provider Review Nursing Documentation Reviewed: Yes - Past History Past History: Non-Contributing - Infectious Disease Hx of Infectious Diseases: None - Tetanus Immunization Tetanus Immunization: Unknown - Cardiac Hx Cardiac Disorders: Yes Hx Hypertension: Yes - Pulmonary Hx Respiratory Disorders: Yes Hx Asthma: Yes - Neurological Hx Neurological Disorder: Yes Hx Seizures: Yes - HEENT Hx HEENT Disorder: No - Renal Hx Renal Disorder: No - Endocrine/Metabolic Hx Endocrine Disorders: Yes Hx Diabetes Mellitus Type 2: Yes Hx Hypothyroidism: Yes - Hematological/Oncological Hx Blood Disorders: Yes Hx Cancer: Yes (thyroid) - Integumentary Hx Dermatological Disorder: Yes (acne) - Musculoskeletal/Rheumatological Hx Musculoskeletal Disorders: Yes Hx Fractures: Yes - Gastrointestinal Hx Gastrointestinal Disorders: No - Genitourinary/Gynecological Hx Genitourinary Disorders: No - Psychiatric Hx Anxiety: Yes Hx Bipolar Disorder: Yes Hx Depression: Yes Hx Psychosis: Yes Hx Substance Use: No - Surgical History Hx Orthopedic Surgery: Yes (R knee) Hx Thyroidectomy: Yes Other/Comment: jaw fixation, partial lymph node removal right side - Anesthesia Hx Anesthesia: Yes Hx Anesthesia Reactions: No Hx Malignant Hyperthermia: No - Suicidal Assessment Feels Threatened In Home Enviroment: No Family/Social History - Physician Review Nursing Documentation Reviewed: Yes Family/Social History: Unknown Family HX Smoking Status: Never Smoked Hx Alcohol Use: No Hx Substance Use: No Hx Substance Use Treatment: No Allergies/Home Meds Allergies/Adverse Reactions: Allergies codeine Allergy (Severe, Verified 12/24/17 14:51) ANAPHYLAXIS chlorpromazine [From Thorazine] Allergy (Verified 12/24/17 14:51) ANAPHYLAXIS fluphenazine [From Prolixin] Allergy (Verified 12/24/17 14:51) RASH haloperidol [From Haldol] Allergy (Verified 12/24/17 14:51) SHORTNESS OF BREATH mushroom Allergy (Verified 12/24/17 14:51) SHORTNESS OF BREATH ziprasidone [From Geodon] Allergy (Verified 12/24/17 14:51) REDNESS tardive dyskinesia Home Medications: Home Meds Medication Instructions Recorded Confirmed Metformin HCl [Metformin] 1,000 mg PO BID 04/15/12 10/26/18 Calcitriol [Rocaltrol] 0.25 mcg PO DAILY 04/12/17 10/26/18 Albuterol HFA [Ventolin HFA 90 1 puff IH PRN PRN 05/23/17 10/26/18 mcg/actuation (8 g)] Calcium Carbonate/Vitamin D3 500 mg PO BID 10/05/17 10/26/18 [Oyster Shell Calcium Tablet] Levothyroxine [Synthroid] 150 mcg PO 0700 10/05/17 10/26/18 Benztropine [Cogentin] 1 tab PO HS 10/26/18 10/26/18 Lisinopril [Zestril] 5 mg PO DAILY 10/26/18 10/26/18 Loratadine [Claritin] 1 tab PO DAILY 10/26/18 10/26/18 Pnv No.95/Ferrous Fum/Folic AC [Hm 1 tab PO DAILY 10/26/18 10/26/18 Tablet] Ranitidine HCl [Acid Big Machine Consultant] 1 tab PO DAILY 10/26/18 10/26/18 hydrOXYzine Pamoate [Vistaril] 1 cap PO BID PRN 10/26/18 10/26/18 Review of Systems - Physician Review All systems were reviewed & negative as marked: Yes - Review of Systems Constitutional: absent: Fevers Respiratory: absent: SOB, Cough Cardiovascular: absent: Chest Pain Gastrointestinal: absent: Abdominal Pain, Diarrhea, Nausea, Vomiting Genitourinary Female: absent: Dysuria, Urine Output Changes Musculoskeletal: absent: Neck Pain Skin: absent: Rash Neurological: Seizure. absent: Headache, Dizziness Psychiatric: absent: Anxiety Physical Exam Vital Signs Reviewed: Yes Vital Signs Temp Pulse Resp BP Pulse Ox 10/26/18 16:05 97.3 F L 97 H 18 135/82 98 Temperature: Afebrile Blood Pressure: Normal Pulse: Regular Respiratory Rate: Normal Appearance: Positive for: Well-Appearing, Non-Toxic, Comfortable Pain Distress: None Mental Status: Positive for: Alert and Oriented X 3 - Systems Exam Head: Present: Atraumatic, Normocephalic Pupils: Present: PERRL Extroacular Muscles: Present: EOMI Conjunctiva: Present: Normal Mouth: Present: Moist Mucous Membranes Neck: Present: Normal Range of Motion Respiratory/Chest: Present: Clear to Auscultation, Good Air Exchange. No: Respiratory Distress, Accessory Muscle Use Cardiovascular: Present: Regular Rate and Rhythm, Normal S1, S2. No: Murmurs Abdomen: No: Tenderness, Distention, Peritoneal Signs Back: Present: Normal Inspection Upper Extremity: Present: Normal Inspection. No: Cyanosis, Edema Lower Extremity: Present: Normal Inspection. No: Edema Neurological: Present: GCS=15, CN II-XII Intact, Speech Normal, Motor Func Grossly Intact (5/5 strength bilaterally), Normal Sensory Function, Other (No nystagmus, no facial asymmetry, normal finger to nose) Skin: Present: Warm, Dry, Normal Color. No: Rashes Psychiatric: Present: Alert, Oriented x 3, Normal Insight, Normal Concentration Medical Decision Making ED Course and Treatment: 10/26/18 16:38 Impression: 48 year old female presents to the ED for evaluation of episodes of seizure. Differential Diagnosis included but are not limited to: -- Seizure Plan: -- CT of Head -- Labs -- Urinalysis -- Reassess and disposition Prior Visits: Notes and results from previous visits were reviewed. Progress Notes: 10/26/18 18:47 Labs reviewed with mild leukopenia noted. CTH negative for intracranial bleeding or pathology. Patient reevaluated and feels much better. She denies any somatic complaints at this time. She is advised to follow up with her PCP tomorrow and schedule an appointment with a neurologist. Neurologist follow up provided. Opportunity for questions given and answered. Return protocol provided. She is stable for discharge. - Lab Interpretations Lab Results: 10/26/18 17:20 10/26/18 17:20 Lab Results 10/26/18 17:20: Salicylates < 1 L, Acetaminophen < 10.0 L 10/26/18 17:20: Free T4 1.71, TSH 3rd Generation 0.02 L 10/26/18 17:20: Urine Opiates Screen Negative, Urine Methadone Screen Negative, Ur Barbiturates Screen Negative, Ur Phencyclidine Scrn Negative, Ur Amphetamines Screen Negative, U Benzodiazepines Scrn Negative, U Oth Cocaine Metabols N egative, U Cannabinoids Screen Negative 10/26/18 17:20: Sodium 137, Potassium 4.4, Chloride 102, Carbon Dioxide 31, Anion Gap 8 L, BUN 14, Creatinine 0.9, Est GFR ( Amer) > 60, Est GFR (Non-Af Amer) > 60, Random Glucose 92, Calcium 9.3, Total Bilirubin 0.1 L, AST 26, ALT 11, Alkaline Phosphatase 60, Total Protein 7.0, Albumin 4.0, Globulin 3.1, Albumin/Globulin Ratio 1.3 10/26/18 17:20: Urine Color Yellow, Urine Appearance Clear, Urine pH 6.0, Ur Specific [place] 1.025, Urine Protein Negative, Urine Glucose (UA) Negative, Urine Ketones Negative, Urine Blood Negative, Urine Nitrate Negative, Urine Bilirubin Negative, Urine Urobilinogen 0.2, Ur Leukocyte Esterase Negative 10/26/18 17:20: WBC 3.7 L, RBC 4.46, Hgb 9.9 L D, Hct 31.8 L, MCV 71.3 L, MCH 22.2 L, MCHC 31.1, RDW 18.4 H, Plt Count 352, MPV 8.7, Neut % (Auto) 51.5, Lymph % (Auto) 37.5 H, [place] % (Auto) 7.8 H, Eos % (Auto) 2.7, Baso % (Auto) 0.5, Lymph # (Auto) 1.4, [place] # (Auto) 0.3, Eos # (Auto) 0.1, Baso # (Auto) 0.02, Abs olute Neuts (auto) 1.91 I have reviewed the lab results: Yes - RAD Interpretation Radiology Orders: 10/26/18 16:33 HEAD W/O CONTRAST [CT] Stat - Scribe Statement The provider has reviewed the documentation as recorded by the Scribe Jef Gonzalez. All medical record entries made by the Scribe were at my direction and personally dictated by me. I have reviewed the chart and agree that the record accurately reflects my personal performance of the history, physical exam, medical decision making, and the department course for this patient. I have also personally directed, reviewed, and agree with the discharge instructions and disposition. Disposition/Present on Arrival - Present on Arrival Any Indicators Present on Arrival: No History of DVT/PE: No History of Uncontrolled Diabetes: No Urinary Catheter: No History of Decub. Ulcer: No History Surgical Site Infection Following: None - Disposition Have Diagnosis and Disposition been Completed?: Yes Diagnosis: Seizure Disposition: HOME/ ROUTINE Disposition Time: 18:45 Patient Plan: Discharge Condition: STABLE Discharge Instructions (ExitCare): Seizures, Adult (DC) Print Language: FRISIAN Additional Instructions: All medical record entries made by the Scribe were at my direction and personally dictated by me. I have reviewed the chart and agree that the record accurately reflects my personal performance of the history, physical exam, medical decision making, and the department course for this patient. I have also personally directed, reviewed, and agree with the discharge instructions and disposition. Please follow up with your PCP tomorrow Try to schedule an appointment with the neurologist listed in your discharge paperwork Referrals: Anel Mendes MD [Primary Care Provider] - Follow up with primary Royal Cartwright MD [Staff Provider] - Follow up with primary Forms: [employer] (Vincentian)
[2018-10-26 17:33] LABS: BASO # 0.02 K/mm3 (0.0-2.0); BASO % 0.5 % (0.0-3.0); EOS # 0.1 (0.0-0.7); EOS % 2.7 % (1.5-5.0); HEMOGLOBIN 9.9 g/dL (12.0-16.0); LYMPH # 1.4 (1.2-3.4); LYMPH % 37.5 % (22.0-35.0); MEAN CELL VOLUME 71.3 fl (80.0-105.0); MEAN CORPUSCULAR HEMOGLOBIN 22.2 pg (25.0-35.0); MEAN CORPUSCULAR HGB CONC 31.1 g/dl (31.0-37.0); MEAN PLATELET VOLUME 8.7 fl (7.0-11.0); MONO # 0.3 (0.1-0.6); MONO % 7.8 % (1.0-6.0); RBC 4.46 10^6/uL (3.5-6.1); RED CELL DISTRIBUTION WIDTH 18.4 % (11.5-14.5); WHITE BLOOD COUNT 3.7 10^3/uL (4.5-11.0)
[2018-10-26 17:44] LABS: ALB/GLOB RATIO 1.3 (1.1-1.8); ALT/SGPT 11 U/L (7-56); AST/SGOT 26 U/L (14-36); BLOOD UREA NITROGEN 14 mg/dL (7-21); CALCIUM 9.3 mg/dL (8.4-10.5); GFR NON-AFRICAN AMERICAN > 60
[2018-10-26 17:51] LABS: ACETAMINOPHEN < 10.0 ug/ml (10.0-20.0); SALICYLATE < 1 mg/dL (2.0-20.0)
[2018-10-26 17:56] LABS: BARBITURATES, UR NEGATIVE (NEGATIVE); BENZODIAZEPINES, UR NEGATIVE (NEGATIVE); OPIATES, UR NEGATIVE (NEGATIVE); PHENCYCLIDINE, UR NEGATIVE (NEGATIVE)
[2018-10-26 18:08] LABS: FREE T4 1.71 ng/dL (0.78-2.19)
[2018-10-26 18:12] LABS: URINE BILIRUBIN NEGATIVE (NEGATIVE); URINE BLOOD NEGATIVE (NEGATIVE); URINE GLUCOSE (UA) NEGATIVE (NEGATIVE); URINE LEUKOCYTE ESTERASE NEGATIVE Leu/uL (NEGATIVE); URINE PROTEIN NEGATIVE mg/dL (<30 mg/dL); URINE UROBILINOGEN 0.2 E.U./dL (<1 E.U./dL)
[2018-10-26 18:14] LABS: URINE APPEARANCE CLEAR (CLEAR); URINE COLOR YELLOW (YELLOW)
[2018-10-26 18:31] VITALS: BP 138/70; PULSE 64; O2SAT 99
--- NOTE | 2018-10-26 18:32 | CT ---
Date of service: 10/26/2018 PROCEDURE: CT HEAD WITHOUT CONTRAST. HISTORY: seizures COMPARISON: Noncontrast head Ct performed 04/12/17 TECHNIQUE: Axial computed tomography images were obtained through the head/brain without intravenous contrast. Radiation dose: Total exam DLP = 852.25 mGy-cm. This CT exam was performed using one or more of the following dose reduction techniques: Automated exposure control, adjustment of the mA and/or kV according to patient size, and/or use of iterative reconstruction technique. FINDINGS: Streak artifact limits evaluation of the skull base. HEMORRHAGE: No intracranial hemorrhage. BRAIN: No mass effect or edema. The jones-white matter differentiation appears intact. Please note that MRI with diffusion imaging is more sensitive in the detection of acute ischemic event. VENTRICLES: No hydrocephalus. CALVARIUM: Unremarkable. PARANASAL SINUSES: Unremarkable as visualized. No significant inflammatory changes. MASTOID AIR CELLS: Unremarkable as visualized. No inflammatory changes. OTHER FINDINGS: None. IMPRESSION: No acute intracranial pathology identified.
== END 2018-10-26 18:57 | disposition home or self-care (01) ==
LOC: ED 15:55
DX: R56.9 Unspecified convulsions (principal); E11.9 Type 2 diabetes mellitus without complications; I10 Essential (primary) hypertension; E03.9 Hypothyroidism, unspecified

== ENCOUNTER 2018-11-29 11:39 | Outpatient (CLI) | payer OTHER | END 2018-11-29 11:40 | disposition home or self-care (01) | LOC: RAD 11:39 ==